=== PATIENT | male | born 1945 | race Caucasian/White ===

== ENCOUNTER 2020-08-02 07:47 | Emergency (ER) | payer MEDICARE ==
[~2020-08-02] VITALS: Ht 185.4 cm; Wt 79.4 kg
[2020-08-02] MEDS ORDERED: KEFLEX500 MG PO (09:58)
== END 2020-08-02 10:09 | disposition home or self-care (01) ==
LOC: ED 07:47
DX: T81.42XA Infection following a procedure, deep incisional surgical site, initial encounter (principal); L03.313 Cellulitis of chest wall; Z87.891 Personal history of nicotine dependence; Z91.040 Latex allergy status; Z91.018 Allergy to other foods
CPT/HCPCS: 99283

== ENCOUNTER 2025-06-16 17:27 | Inpatient (IN) | payer OTHER, MEDICARE ==
[~2025-06-16] VITALS: Ht 185.4 cm; Wt 192.0 kg
[~2025-06-16 17:27] MED LIST: KEFLEX500 MG PO
--- OUTSIDE RECORDS SUMMARY | 2025-06-16 17:34 | XMS ---
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 Jocelyn has no Care Guidelines for this patient. Sean VISIT COUNT (12 MO.) 1 GERARDO AustinEuniceDave Mojica [facility] 1 [facility] TOTAL 3 NOTE: Visits indicate total known visits. ED/C VISIT TRACKING (12 MO.) 06/16/2025 17:28 [facility] TYPE: Emergency COMPLAINT: - SOB 05/26/2025 09:48 [facility] TYPE: Emergency DIAGNOSES: - Pain, unspecified - Wedge compression fracture of T9-T10 vertebra, initial encounter for closed fracture - Back Pain 03/15/2025 11:07 [facility] TYPE: Emergency DIAGNOSES: - Low back pain, unspecified - flank pain INPATIENT VISIT TRACKING (12 MO.) No inpatient visits to display in this time frame [email or web address]
[2025-06-16] MEDS ORDERED: ALBUTEROL/IPRATROPIUM 3 ML NEB INH PRN (17:45)
[2025-06-16 17:55] LABS: BASOPHILS 0.2 % (0.2-1.2); EOSINOPHILS 0 % (0.8-7.0); LYMPHOCYTES 5.8 % (21.8-53.1); MCH 27.8 PG (25.7-32.2); MCHC 32.1 g/dL (32.3-36.5); MCV 86.7 fL (79.0-92.2); MONOCYTES 4.0 % (5.3-12.2); NEUTROPHILS 89.6 % (34.0-67.9); RBC 4.74 M/uL (4.63-6.08)
[2025-06-16] MEDS ORDERED: ALBUTEROL/IPRATROPIUM 3 ML NEB INH ONE ×2 (18:00→19:00)
[2025-06-16] MEDS ORDERED: AZITHROMYCIN 500 MG in DEXTROSE 5% 250 ML IV ONE (18:00)
[2025-06-16] MEDS ORDERED: LIPITOR80 MG PO (18:09)
[2025-06-16] MEDS ORDERED: ISOSORBIDE MONO30 MG PO (18:10)
[2025-06-16] MEDS ORDERED: DOXEPIN HCL10 MG PO (18:10)
[2025-06-16 18:11] LABS: INR 1.16 (0.80-1.30); PROTIME 14.0 Sec (11.2-14.2)
[2025-06-16] MEDS ORDERED: ZITHROMAX250 MG PO (18:11)
[2025-06-16] MEDS ORDERED: ASMANEX HFA13 GM INH (18:12)
[2025-06-16] MEDS ORDERED: NITROGLYCERIN0.4 MG SL (18:12)
[2025-06-16] MEDS ORDERED: SINGULAIR10 MG PO (18:12)
[2025-06-16] MEDS ORDERED: STIOLTO RESPIMAT4 GM INH (18:13)
[2025-06-16] MEDS ORDERED: TAMOXIFEN CITRA20 MG PO (18:13)
[2025-06-16] MEDS ORDERED: PREDNISONE10 MG PO (18:13)
[2025-06-16] MEDS ORDERED: NEURONTIN300 MG PO (18:14)
[2025-06-16] MEDS ORDERED: MUCUS RELIEF E600 MG PO (18:14)
[2025-06-16] MEDS ORDERED: VENTOLIN HFA18 GM INH (18:15)
[2025-06-16] MEDS ORDERED: VITAMIN D325 MCG PO (18:15)
[2025-06-16] MEDS ORDERED: ZYRTEC10 MG PO (18:15)
[2025-06-16] MEDS ORDERED: SODIUM CHLORIDE 0.9% 1,000 ML IV PRN (18:15)
[2025-06-16] MEDS ORDERED: ASPIRIN81 MG PO (18:16)
[2025-06-16] MEDS ORDERED: TOPROL XL25 MG PO (18:16)
[2025-06-16] MEDS ORDERED: VITAMIN B121000 MCG PO (18:16)
[2025-06-16] MEDS ORDERED: BENZONATATE100 MG PO (18:16)
[2025-06-16 18:19] LABS: LACTIC ACID, BLOOD 2.0 mmol/L (0.4-2.0)
[2025-06-16 18:29] LABS: ALT (SGPT) 66.0 U/L (14-59); AST (SGOT) 33.0 U/L (15-37); GLOMERULAR FILTRATION RATE,EST 66.0 mL/min (>60); PROTEIN, TOTAL 7.1 g/dL (6.4-8.2); UREA NITROGEN 20.0 mg/dL (7-18)
[2025-06-16] MEDS ORDERED: SODIUM CHLORIDE 0.9% 1,000 ML IV SCH (19:00)
[2025-06-16 19:04] LABS: INFLUENZA B NAA NEGATIVE (NEGATIVE); RESPIRATORY SYNCYTIAL VIR NAA NEGATIVE (NEGATIVE)
[2025-06-16 20:30] VITALS: BP 156/80
[2025-06-16 20:31] VITALS: BP 156/80
--- NOTE | 2025-06-16 20:33 | NUR ---
PT ADMITTED TO ROOM 110, O2 IN PLACE AT 4LNC, PT RIVAS WITH MINIMAL MOVEMENT. PT ALERT AND ORIENTED X4. HISTORY AND SCREENINGS COMPLETED. PT TO ONLY HAVE MANUAL BP'S TAKEN R/T FRAGILITY OF SKIN. PT DAUGHTER AT BEDSIDE. PT ORIENTED TO ROOM AND CALL ALDRIDGE, BED IN LOW POSITION AND LOCKED. SIDERAILS UP X2. PT INSTRUCTED HACK DRIVER ALDRIDGE, TV REMOTE, URINAL USE. PROVIDED LIQUIDS AND CHEESE STICKS. PT VERBALIZED UNDERSTANDING OF ALL INSTRUCTIONS. PT ORIENTED TO ROOM
[2025-06-16] MEDS ORDERED: ALBUTEROL SULFATE 0.083% 3 ML VIAL INH PRN (20:45)
--- NOTE | 2025-06-16 21:45 | NUR ---
call light answered, pt up to void via urinal, sob after voiding and back in bed, spo2 maintains 90%-94% on 3.5lnc. hr flucuating beteen 98-106. bed alarm on for safety and call light in reach, no additional needs or concerns verbalized, call light in reach.
--- NOTE | 2025-06-16 22:14 | NUR ---
VITALS, ASSESSMENT, EVENING MEDS. PT REPORTS PAIN OF BACK, REQUESTS TYLENOL 3 WHICH HE USUALLY TAKES 4 TIMES A DAY AT HOME. ALSO REQEUSTS COUGH MEDICATION DISCUSSED WITH MD, SEE NEW ORDERS. CALL LIGHT IN REACH
[2025-06-16] MEDS ORDERED: ACETAMINOPHEN/CODEINE #3 1 EA TAB PO PRN (22:30)
[2025-06-16] MEDS ORDERED: BENZONATATE 100 MG CAP PO PRN (22:30)
--- NOTE | 2025-06-16 22:39 | NUR ---
GIVEN PRN TYLENOL 3 AND TESSALON PERLE. NO OTHER NEEDS PRESENTLY,C ALL LIGHT IN REACH
[2025-06-17] VITALS (9 sets, daily range): BP systolic 122–144; BP diastolic 76–86
[2025-06-17] MEDS ORDERED: ALBUTEROL/IPRATROPIUM 3 ML NEB INH SCH
--- NOTE | 2025-06-17 01:45 | NUR ---
ASSISTED PT TO STAND AT BEDSIDE AND USE URINAL. PT STEADY ON FEET, THOUGH DESATTED TO 87% AND REPORTS SHORTNESS OF BREATH. PT BACK IN BED WITH BED ALARM ACTIVE. REFRESHED WATER. NO OTHER NEEDS, ERICA LIGHT INREACH
--- NOTE | 2025-06-17 05:10 | NUR ---
VITALS, AM ASSESSMENT, AM MEDS. PROVIDED COFFEE FOR PT. NO OTHER REQUESTS, CALL LIGHT IN REACH
--- NOTE | 2025-06-17 07:24 | NUR ---
pt's home albuterol inhaler placed in pt room lock box, per protocol. pt denies use. family in room visiting with pt.
--- NOTE | 2025-06-17 07:27 | NUR ---
MORNING REPORT RECIEVED FROM ABDIRAHMAN TRACY. PT SITTING UP IN BED, PT HAD NO ACUTE EVENTS OVER NIGHT AND PT DAUGHTER IS CURRENTLY IN ROOM. PT COMPLAINED OF NAUSEA AND MD MURRAY WAS CONTACTED ABOUT A ORDER FOR ZOFRAN. PT HAS NO OTHER CONCERNS AND HAS CALL LIGHT IN REACH.
[2025-06-17 08:08] LABS: BASOPHILS 0.1 % (0.2-1.2); EOSINOPHILS 0.1 % (0.8-7.0); LYMPHOCYTES 3.2 % (21.8-53.1); MCH 28.2 PG (25.7-32.2); MCHC 33.3 g/dL (32.3-36.5); MCV 84.7 fL (79.0-92.2); MONOCYTES 0.8 % (5.3-12.2); NEUTROPHILS 95.4 % (34.0-67.9); RBC 4.71 M/uL (4.63-6.08)
[2025-06-17 08:23] LABS: GLOMERULAR FILTRATION RATE,EST 87.0 mL/min (>60); UREA NITROGEN 19.0 mg/dL (7-18)
--- NOTE | 2025-06-17 09:12 | NUR ---
ALERT AND ORIENTED IN BED. LIVES ALONE IN MOBILE HOME BUT HAS A RAMP TO GET INSIDE. STATES HE HAS A TOILET RISER, WALKER, WHEELCHAIR, SHOWER CHAIR AND OXYGEN (THROUGH [facility]). HE DRIVES. HE DENIES ANY FINANCIAL CONCERNS. HE IS ABLE TO AFFORD UTLITIES, FOOD AND MEDICATIONS. PATIENT STATES HIS DAUGHTER IS ATTEMPTING TO GET HIM FURTHER ASSISTANCE AT HOME [facility]OUGH [facility]. HIS PLAN IS TO DC TO HOME IF POSSIBLE, WHEN MEDICALLY READY.
--- NOTE | 2025-06-17 09:15 | NUR ---
PATIENT IS LAYING IN BED. PATIENTS VITAL SIGNS AND I&OS WERE DONE. PATIENTS CALL LIGHT IS WITHIN REACH AND NO FURTHER NEEDS AT THIS TIME.
--- NOTE | 2025-06-17 10:13 | NUR ---
PT LAYING IN BED WITH HOB ELEVATED, PT HAS 1.5L O2 NS IN PLACE AND TOLERATING WELL, PT HAS PAIN WHEN COUGHING AND GIVEN PRN TYLENOL, PT ALSO GIVEN TESSLON PEARLS (SEE EMAR) CALL LIGHT IN REACH AND PT DENIES ANY OTHER NEEDS.
[2025-06-17] MEDS ORDERED: HYDROCODON-ACE1 EAC8 PO (10:21)
--- NOTE | 2025-06-17 10:50 | NUR ---
VISITED DURING SPIRITUAL CARE ROUNDS. PT IN OVERALL GOOD SPIRITS, NO IMMEDIATE NEEDS. DIRECTOR DATA MANAGEMENT PROVIDED SUPPORTIVE PRESENCE, THEOLOGICAL CONVERSATION, PRAYER. PT EXPRESSED GRATITUDE, ARNAUD SOURCE OF STRENGTH, STRONG CONNECTION WITH ARNAUD FAMILY.
[2025-06-17] MEDS ORDERED: ASPIRIN 81 MG CHEW PO SCH (11:36)
[2025-06-17] MEDS ORDERED: METOPROLOL SUCCINATE 25 MG TABCR PO SCH (11:37)
[2025-06-17] MEDS ORDERED: MONTELUKAST SODIUM 10 MG TAB PO SCH (11:37)
[2025-06-17] MEDS ORDERED: ISOSORBIDE MONONITRATE 30 MG TABCR PO SCH (11:37)
[2025-06-17] MEDS ORDERED: ACETAMINOPHEN 325 MG TAB PO PRN (11:45)
[2025-06-17] MEDS ORDERED: FOSAMAX70 MG PO (11:53)
[2025-06-17] MEDS ORDERED: CALCIUM CITRAT1 EA11 PO (11:54)
[2025-06-17] MEDS ORDERED: PHARMACY RENAL DOSE ADJUSTMENT 1 DOSE MISC PO SCH (12:00)
[2025-06-17] MEDS ORDERED: DOXYCYCLINE HYCLATE 100 MG CAP PO SCH (12:00)
--- NOTE | 2025-06-17 12:58 | NUR ---
PATIENT IS SITTING IN THE CHAIR EATING LUNCH. PATIENTS LINENS WERE CHANGED PATIENTS CALL LIGHT IS WITHIN REACH AND NO FURTHER NEEDS AT THIS TIME.
--- NOTE | 2025-06-17 13:40 | NUR ---
PT SITTIGN UP IN CHAIR AT THIS TIME, PT HAS FAMILY IN THE ROOM AT THIS TIME AND HAS NO CONCERNS PT HAS CALL LIGHT IN REACH AT THIS TIME.
--- NOTE | 2025-06-17 13:57 | NUR ---
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
--- NOTE | 2025-06-17 14:17 | NUR ---
Admin two tabs tylenol/codeine #3 tabs for reports of 7/10 generalized pain.
[2025-06-17] MEDS ORDERED: IPRAT-ALBUT 0.5-3 ML INH (14:41)
[2025-06-17] MEDS ORDERED: PATADAY5 ML OU (15:07)
--- NOTE | 2025-06-17 15:07 | NUR ---
PT SITTING UP IN CHAIR, PT DENIES NEEDS AND IS PLAYING CARDS WITH GRANDSON AT THIS TIME. PT CALL LIGHT IN REACH CURRENTLY IF NEEDED.
[2025-06-17] MEDS ORDERED: REFRESH CELLUV1 EACH OU (15:08)
[2025-06-17] MEDS ORDERED: NARCAN4 MG NAS (15:09)
--- NOTE | 2025-06-17 15:10 | NUR ---
PATIENT SITTING IN CHAIR. PATIENTS GRANDSON IS AT THE BEDSIDE. PATIENTS CALL LIGHT IS WITHIN REACH AND NO FURTHER NEEDS AT THIS TIME.
[2025-06-17] MEDS ORDERED: LIDODERM1 EACH TOP (15:11)
--- NOTE | 2025-06-17 15:12 | NUR ---
medications reconciled using [facility] and patient interview
--- NOTE | 2025-06-17 15:17 | EKG ---
[facility] [address] [facility] [place] [address] Signed Sinus tachycardia with occasional premature ventricular complexes Left axis deviation Abnormal ECG No previous ECGs available Confirmed by Mathew Mohan MD ([id number]) on 06/17/2025 3:17:15 PM Electronically Signed By: MATHEW MOHAN MD 06/17/25 1517 PATIENT NAME: ZAYRA MUÑOZ Electrocardiogram DATE OF : 45 PHYSICIAN: MATHEW MOHAN MD REPORT #: [id number] REPORT IS CONFIDENTIAL AND NOT TO BE RELEASED WITHOUT AUTHORIZATION
[2025-06-17] MEDS ORDERED: HYDROCODONE/APAP 10/325 1 TAB PO PRN (15:45)
--- NOTE | 2025-06-17 16:14 | NUR ---
PT LAYING IN BED, PT HAS FAMILY IN ROOM AT THIS TIME PT HAS NO CONCERNS AND HAS CALL LIGHT IN REACH AT THIS TIME, PT DENIES SOB AND PAIN, AND HAS 2L NC IN PLACE.
--- NOTE | 2025-06-17 17:42 | NUR ---
PATIENT IS LAYING IN BED. PATIENTS VITAL SIGNS AND I&OS WERE DONE. PATIENTS FAMILY IS AT BEDSIDE. CALL LIGHT IS WITHIN REACH AND NO FUTHER NEEDS AT THIS TIME.
--- NOTE | 2025-06-17 17:52 | NUR ---
PT SITTING UP IN BED WITH SON IN ROOM AND GRANDSON, PT HAS NO CURRENT NEEDS AT THIS TIME AND HAS CALL LIGHT IN REACH IF NEEDED.
--- NOTE | 2025-06-17 19:10 | NUR ---
REPORT RECEIVED FROM KATELYNN GARY. BOARD UPDATED. pt RESTING IN THE BED. pt DENIES ANY OTHER NEEDS AT THIS TIME. CALL LIGHT WITHIN REACH.
[2025-06-17] MEDS ORDERED: GABAPENTIN 300 MG CAP PO SCH (21:00)
[2025-06-17] MEDS ORDERED: DOXEPIN HCL 10 MG CAP PO SCH (21:00)
--- NOTE | 2025-06-17 21:30 | NUR ---
ASSESSMENT AND VITAL SIGNS DONE. pt LUNG SOUNDS ARE CLEAR. SCHEDULED AND PRN MEDS ADMINISTERED. IV'S ASSESSED, WNL. IV IN LAC DC'D PER pt REQUEST. pt DENIES ANY OTHER NEEDS AT THIS TIME. CALL LIGHT WITH IN REACH.
--- NOTE | 2025-06-17 23:04 | NUR ---
CALL LIGHT ANSWERED, PATIENT UP TO RESTROOM TO VOID, USE OF FWW AND MINIMAL SBA. PATIENT BACK TO BED WITHOUT DIFFICULTY, SAT ON SIDE OF BED TO CATCH BREATH, BEFORE LAYING DOWN. NC IN PLACE 2L. BED ALARM ON, CALL LIGHT IN REACH
[2025-06-18] VITALS (7 sets, daily range): BP systolic 102–144; BP diastolic 66–86
--- NOTE | 2025-06-18 00:09 | NUR ---
IN RM TO CHECK ON pt. pt REQUSTED A REFILL ON ICE WATER AND CRANBERRY JUICE. WATER REFRESHED. CRANBERRY JUICE GIVEN. URINAL EMPTIED. pt DENIES ANY OTHER NEEDS AT THIS TIME. CALL LIGHT WITHIN REACH.
--- NOTE | 2025-06-18 01:47 | NUR ---
rounded on pt, pt resting in bed with eyes closed. rr even and unlabored, 2lnc in place. bed alarm on and call light in reach. pt appears relaxed and comfortable at this time. primary rn updated.
--- NOTE | 2025-06-18 04:00 | NUR ---
pt RESTING IN THE BED WITH EYES CLOSED. RR EVEN AND UNLABORED. CALL LIGHT WITHIN REACH.
--- NOTE | 2025-06-18 05:02 | NUR ---
pt CALLED AND ASKED TO USE THE BR. THIS RN WENT IN THE TO ASSIST THE pt. pt SBA TO THE BR. pt WAS SOB WHEN HE GOT BACK TO BED. THIS RN ASKED pt IF HE WOULD LIKE A BREATHING TREATMENT. pt AGREED. RT SHAY CALLED TO AND BREATHING TREATMENT STARTED. VITAL SIGNS DONE. ASSESSMENT DONE. NO OTHER NEEDS AT THIS TIME.
[2025-06-18 06:13] LABS: GLOMERULAR FILTRATION RATE,EST 87.0 mL/min (>60); UREA NITROGEN 26.0 mg/dL (7-18)
[2025-06-18 06:14] LABS: BASOPHILS 0.1 % (0.2-1.2); EOSINOPHILS 0 % (0.8-7.0); LYMPHOCYTES 2.8 % (21.8-53.1); MCH 27.9 PG (25.7-32.2); MCHC 32.9 g/dL (32.3-36.5); MCV 84.8 fL (79.0-92.2); MONOCYTES 2.3 % (5.3-12.2); NEUTROPHILS 94.2 % (34.0-67.9); RBC 4.27 M/uL (4.63-6.08)
--- NOTE | 2025-06-18 07:22 | NUR ---
REPORT RECEIVED FROM CHARTER BUS DRIVER RN ADELITA. PATIENT IS LYING IN BED WITH HOB ELEVATED AND TALKING ON THE PHONE. NC IN PLACE. CALL LIGHT AND PERSONAL BELONGINGS ARE WITHIN REACH.
--- NOTE | 2025-06-18 08:45 | NUR ---
PATIENT IS LYING IN BED WITH HOB ELEVATED. PATIENT WITH NC IN PLACE AND IS EATING BREAKFAST. PATIENT STATED NO NEEDS AT THIS TIME. CALL LIGHT AND PERSONAL BELONGINGS ARE WITHIN REACH.
[2025-06-18] MEDS ORDERED: ENOXAPARIN SODIUM 40 MG/0.4 ML SYR SUB-Q SCH (09:00)
--- NOTE | 2025-06-18 09:35 | NUR ---
PATIENT JUST RETURNED TO BED AFTER USING THE BATHROOM. PATIENT REMAINS ON 2 L NC WITH EXPIRATORY WHEEZE HEARD. PATIENT REPORTS 6/10 PAIN IN THE CHEST AND RIGHT SIDE OF ABDOMEN WITH BREATHING. PATIENT IS NOT REQUESTING ANYTHING FOR PAIN AT THIS TIME. RESPIRATORY THERAPY NOTIFIED OF PATIENT NEEDING A BREATHING TREATMENT. FULL ASSESSMENT COMPLETE AND DOCUMENTED IN THE CHART. VITAL SIGNS AND INTAKE AND OUTPUT VALUES TAKEN AND DOCUMENTED IN THE CHART. PATIENT STATED NO FURTHER NEEDS AT THIS TIME. CALL LIGHT AND PERSONAL BELONGINGS ARE WITHIN REACH.
[2025-06-18] MEDS ORDERED: ARFORMOTEROL TARTRATE 15 MCG/2 ML VIAL INH SCH (09:38)
[2025-06-18] MEDS ORDERED: BUDESONIDE 0.5 MG/2 ML VIAL INH SCH (09:39)
[2025-06-18] MEDS ORDERED: BUDESONIDE 0.5 MG/2 ML VIAL ONE (09:44)
--- NOTE | 2025-06-18 09:50 | NUR ---
INTO SEE PATIENT. PATIENT STATES HE HAS HAD A HARD MORNING. PATIENT STILL WOULD LIKE TO GO HOME AT TIME OF DISCHARGE. AWAITING THERAPY RECCOMENDATIONS.
--- NOTE | 2025-06-18 09:52 | NUR ---
PT NOT AVAILABLE FOR VISIT. PROVIDED PRAYER.
--- NOTE | 2025-06-18 11:02 | NUR ---
PT SITTING UP IN BED WORKING WITH PHYSICAL THERAPY. CALL LIGHT IN REACH.
--- NOTE | 2025-06-18 12:08 | NUR ---
PATIENT IS LYING IN BED WITH HOB ELEVATED. PATIENT WITH EYES OPEN AND RESPIRATIONS ARE EVEN AND UNLABORED. PATIENT WITH NC IN PLACE. CONNIE BENNETT IS IN THE ROOM AT THIS TIME. CALL LIGHT AND PERSONAL BELONGINGS ARE WITHIN REACH.
--- NOTE | 2025-06-18 13:46 | NUR ---
PT IN BED, HOB ELEVATED. PT WITH EYES OPEN, RR ARE EVEN AND UNLABORED. NC IN PLACE, LUNCH TRAY REMOVED. PT RATED 4/10 AFTER RECIEVING PsomasFMGCO AT 1011. PT STATED NO FURTHER NEEDS AT THIS TIME, CALL LIGHT AND PERSONAL BELONGINGS WITHIN REACH.
--- NOTE | 2025-06-18 13:48 | NUR ---
DISCHARGE REVIEW: CONTINUES WITH NEED FOR IV STEROIDS, TITRATION OF OXYGEN, RT/PT/OT EVAL AND TREATMENT WITH POTENTIAL NEED FOR HOME HEALTH AT DC. PLAN 1-2 MORE DAYS OF INPT CARE ADD: 06/19-06/20/25
--- NOTE | 2025-06-18 13:58 | NUR ---
PATIENT IN BED AT THIS TIME. HEAVY MEDIA OPERATOR CHARTED VITALS AND I&O'S. PATIENT WANTS BEDBATH AT 1500. CALL LIGHT WITHIN REACH, NO FURTHER NEEDS.
--- NOTE | 2025-06-18 14:18 | NUR ---
PT IN BED WITH HOB ELEVATED, TALKING WITH DR. JACOB. CALL LIGHT AND PERSONAL BELONGINGS WITHIN REACH.
[2025-06-18] MEDS ORDERED: guaiFENesin 600 MG TABCR PO PRN (14:30)
[2025-06-18] MEDS ORDERED: GABAPENTIN 300 MG CAP PO ONE (14:30)
--- NOTE | 2025-06-18 14:52 | NUR ---
PATIENT IS WORKING WITH PHYSICAL THERAPY AND RESPIRATORY THERAPY AT THIS TIME.
--- NOTE | 2025-06-18 15:29 | NUR ---
PT SITTING IN BED WITH HOB ELEVATED. PT APPEARS TACHYPNEIC. CRACKLES AUSCULTATED THROUGHOUT LUNGS. PT ON 2LNC CURRENTLY. 4LNC TO BE USED WITH ACTIVITY. PT HAS NO C/O SOB. PT REQUESTING MUCINEX. IV SITE REMAINS CLEAN, DRY, AND INTACT. FLUSHED WITH 10 ML SALINE. PT REPORTS PAIN IS STILL AT A 4/10 ON RIGHT SIDE AND CHEST. PT NOT REQUESTING ANYTHING FOR PAIN AT THIS TIME. PT STATED NO FURTHER NEEDS. CALL LIGHT AND PERSONAL BELONGINGS WITHIN REACH.
--- NOTE | 2025-06-18 16:00 | NUR ---
PT SITTING IN BED WITH HOB ELEVATED. RR EVEN AND UNLABORED. PROVIDED MUCINEX TO PT. CALL LIGHT AND PERSONAL BELONGINGS WITHIN REACH.
--- NOTE | 2025-06-18 17:02 | NUR ---
PT SITTING IN BED WITH HOB ELEVATED, VISITING WITH FAMILY. NC SECURELY ON FACE. PT REPORTS THAT PAIN IS STILL AT A 4/10; PT NOT REQUESTING ANYTHING FOR PAIN AT THIS TIME. CALL LIGHT AND PERSONAL BELONGINGS WITHIN REACH, PT DENIES ANY NEEDS AT THIS TIME.
--- NOTE | 2025-06-18 18:04 | NUR ---
PT IN BED WITH HEAD ELEVATED, VISITING WITH FAMILY. REMOVED DINNER TRAY PER PT REQUEST. CALL LIGHT AND PERSONAL BELONGINGS WITHIN REACH.
--- NOTE | 2025-06-18 18:57 | NUR ---
PATIENT IN BED AT THIS TIME. LAMP TESTER AND INSPECTOR CHARTED VITALS AND I&O'S. CALL LIGHT WITHIN REACH, NO FURTHER NEEDS AT THIS TIME.
--- NOTE | 2025-06-18 19:10 | NUR ---
REPORT RECEIVED FROM DIRK GARY. pt RESTING IN THE BED. BOARD UPDATED. pt DENIES ANY NEEDS AT THIS TIME. CALL LIGHT WITHIN REACH.
[2025-06-18] MEDS ORDERED: GABAPENTIN 300 MG CAP PO SCH (21:00)
--- NOTE | 2025-06-18 22:15 | NUR ---
ASSESSMENT DONE. IV ASSESSED, WNL. SCHEDULED MEDS ADMINISTERED. LUNG SOUNDS CLEAR. 2LNC. pt DENIES ANY OTHER NEEDS AT THIS TIME. CALL LIGHT WITHIN REACH.
[2025-06-19] VITALS (9 sets, daily range): BP systolic 113–159; BP diastolic 61–87
--- NOTE | 2025-06-19 00:04 | NUR ---
pt RESTING IN THE BED. RT IN GIVING pt BREATHING TREATMENT. pt DENIES ANY OTHER NEEDS AT THIS TIME. CALL LIGHT WITHIN REACH.
--- NOTE | 2025-06-19 01:44 | NUR ---
pt CALLED TO USE THE BR. SBA TO THE BR. O2 INCREASED TO 4LNC DURING ACTIVITY. pt BACK TO THE BED. O2 DECREASED BACK TO 2LNC. pt DENIES ANY OTHER NEEDS AT THIS TIME. CALL LIGHT WITHIN REACH.
--- NOTE | 2025-06-19 03:09 | NUR ---
pt RESTING IN THE BED WITH EYES CLOSED. RR EVEN AND UNLABORED. CALL LIGHT WITHIN REACH. 2LNC ON.
--- NOTE | 2025-06-19 05:43 | NUR ---
PATIENT IS LAYING IN BED. VITAL SIGNS AND I&OS WERE DONE. WATER WAS REFILLED. PATIENT DECLINED TO US THE BATHROOM. PATIENTS CALL LIGHT IS WITHIN REACH AND NO FURTHER NEEDS AT THIS TIME.
[2025-06-19 05:56] LABS: BASOPHILS 0.1 % (0.2-1.2); EOSINOPHILS 0 % (0.8-7.0); LYMPHOCYTES 2.2 % (21.8-53.1); MCH 28.1 PG (25.7-32.2); MCHC 33.0 g/dL (32.3-36.5); MCV 85.1 fL (79.0-92.2); MONOCYTES 2.4 % (5.3-12.2); NEUTROPHILS 94.8 % (34.0-67.9); RBC 4.09 M/uL (4.63-6.08)
[2025-06-19 06:18] LABS: GLOMERULAR FILTRATION RATE,EST 80.0 mL/min (>60); UREA NITROGEN 27.0 mg/dL (7-18)
--- NOTE | 2025-06-19 07:12 | NUR ---
REPORT RECEIVED FROM TACK CLEANER RN ADELITA. PATIENT IS SITTING UPRIGHT IN THE CHAIR WITH EYES CLOSED AND RESPIRATIONS ARE EVEN AND UNLABORED. NC IN PLACE. CALL LIGHT AND PERSONAL BELONGINGS ARE WITHIN REACH.
[2025-06-19] MEDS ORDERED: ALBUTEROL/IPRATROPIUM 3 ML NEB INH SCH (08:00)
--- NOTE | 2025-06-19 08:31 | NUR ---
PATIENT IN CHAIR AT THIS TIME. AUTO GARAGE MECHANIC CHARTED HOURLY ROUNDS. CALL LIGHT WITHIN REACH, NO FURTHER NEEDS.
--- NOTE | 2025-06-19 08:37 | NUR ---
PATIENT IS SITTING IN THE CHAIR WITH BILATERAL LOWER EXTREMITIES ELEVATED. PATIENT IS EATING BREAKFAST. NC IN PLACE. PATIENT REPORTS WANTING TO GET BACK TO BED AFTERWARDS. PATIENT EDUCATED ON PRESSING THE CALL LIGHT WHEN HE IS READY. PATIENT EXPRESSED UNDERSTANDING AND NO FURTHER NEEDS. CALL LIGHT AND PERSONAL BELONGINGS ARE WITHIN REACH.
--- NOTE | 2025-06-19 09:06 | NUR ---
PATIENT IS SITTING IN THE CHAIR WITH BILATERAL LOWER EXTREMITIES ELEVATED. PATIENT WITH EYES OPEN AND RESPIRATIONS ARE EVEN AND UNLABORED. NC IN PLACE. CALL LIGHT AND PERSONAL BELONGINGS ARE WITHIN REACH.
--- NOTE | 2025-06-19 09:34 | NUR ---
PATIENT IN BED AT THIS TIME. FINISHER BRUSH CHARTED VITALS AND I&O'S. CALL LIGHT WITHIN REACH, NO FURTHER NEEDS.
--- NOTE | 2025-06-19 10:09 | NUR ---
INTO SEE PATIENT. PATIENT STILL WOULD LIKE TO GO HOME WITH HOME HEALTH AT TIME OF DISCHARGE. HE IS GOING TO GO STAY WITH HIS DAUGHTER A COUPLE DAYS TO GET STRONGER. IMM LETTER COMPLETED. NO FUTHER CM NEEDS.
--- NOTE | 2025-06-19 10:40 | NUR ---
PT UP IN CHAIR WITH LOWER EXTREMITIES ELEVATED. PT WITH EYES OPEN; RR ARE EVEN AND UNLABORED. FULL ASSESSMENT COMPLETE AND DOCUMENTED IN CHART. LAST BM 06/17/2025. PT IS ALERT AND ORIENTED. PT REPORTS NUMBESS AND TINGLING TO BILATERAL LOWER EXTREMITIES AT BASELINE. PT REMAINS ON 2LNC, LUNG SOUNDS ARE COARSE THROUGHOUT. PT WITH NO C/O SOB. SCATTERED BRUISING NOTED, PT REPORTED PAIN 5/10 IN THE CHEST AND RIGHT SIDE OF ABDOMEN. PT IS NOT REQUESTING ANYTHING FOR PAIN AT THIS TIME. PT REPORTS NEEDING TO USE THE BATHROOM AND WANTING TO GET BACK TO BED. TASK DELEGATED TO CONNIE DENNEY. CALL LIGHT AND PERSONAL BELONGINGS ARE WITHIN REACH.
--- NOTE | 2025-06-19 11:06 | NUR ---
PT IS LAYING IN BED WITH HEAD RECLINED, WATCHING TV. CALL LIGHT AND PERSONAL BELONGINGS WITHIN REACH. RR EVEN AND UNLABORED.
--- NOTE | 2025-06-19 11:18 | NUR ---
VISITED DURING SPIRITUAL CARE ROUNDS. PT APPEARED TO BE SLEEPING. DID NOT DISTURB. PROVIDED PRAYER.
--- NOTE | 2025-06-19 12:25 | NUR ---
PT SITTING UP IN BED WITH HEAD ELEVATED, VISITING WITH GRANDSON, ABOUT TO EAT LUNCH. RR ARE EVEN AND UNLABORED, CALL LIGHT IS IN HAND AND PERSONAL BELONGINGS ARE WITHIN REACH. PT STATES NO NEEDS AT THIS TIME.
--- NOTE | 2025-06-19 13:00 | NUR ---
PT SITTING UP IN BED WITH HOB ELEVATED, PLAYING CARDS WITH GRANDSON. RR EVEN AND UNLABORED. CALL LIGHT AND PERSONAL BELONGINGS WITHIN REACH, DENIES ANY NEEDS AT THIS TIME.
--- NOTE | 2025-06-19 14:16 | NUR ---
PATIENT IS LYING IN BED WITH EYES OPEN AND RESPIRATIONS ARE EVEN AND UNLABORED. NC IN PLACE. PATIENT GRANDSON IS SITTING ON THE COUCH. CALL LIGHT AND PERSONAL BELONGINGS ARE WITHIN REACH.
--- NOTE | 2025-06-19 14:34 | NUR ---
PATIENT IS LYING IN BED WITH HOB ELEVATED. PATIENT WITH EYES OPEN AND RESPIRATIONS ARE EVEN AND UNLABORED. 1400 MEDICATION ADMINISTERED PER THE EMAR. PATIENT RATED PAIN A 6/10 IN THE RIBS. PRN NORCO ADMINISTERED PER THE EMAR. IV SITE FLUSHED WITH 10 ML NORMAL SALINE AND IS SALINE LOCKED. IV DRESSING IS CLEAN, DRY, AND INTACT. PATIENT IS ON 2 L NC. LUNG SOUNDS ARE COARSE THROUGHOUT. PATIENT REPORTS "I CAN TELL THERE IS A DIFFERENCE" WHEN THIS RN ASKED PATIENT ABOUT SOB. PATIENT IS ALERT AND ORIENTED TIMES FOUR. NUMBNESS AND TINGLING STILL REPORTED IN THE BLE. TWO VISITORS ARE IN THE ROOM. PATIENT STATED NO FURTHER NEEDS AT THIS TIME. CALL LIGHT AND PERSONAL BELONGINGS ARE WITHIN REACH.
--- NOTE | 2025-06-19 15:02 | NUR ---
PT IS UP AND AMBULATING THE HALLS WITH PHYSICAL THERAPY AND GRANDSON. CONNIE BENNETT, IS FOLLOWING BEHIND WITH A W/C.
--- NOTE | 2025-06-19 17:05 | NUR ---
PATIENT PROVIDED LIST OF BREATHING TREATMENTS HE IS RECEIVING IN THE HOSPITAL. PATIENT UPDATED ON THIS RN SPEAKING WITH REGARDING AN ANTACID. PATIENT EXPRESSED UNDERSTANDING. PATIENT RATED PAIN 5/10 IN THE RIBS. PATIENT IS NOT REQUESTING ANYTHING FOR PAIN AT THIS TIME. PATIENT STATED NO FURTHER NEEDS. CALL LIGHT AND PERSONAL BELONGINGS ARE WITHIN REACH.
--- NOTE | 2025-06-19 18:02 | NUR ---
NOTIFIED OF PATIENT REQUESTING LIDOCAINE CREAM AND SOMETHING FOR STOMACH ACID. MD STATED HE WOULD PUT AN ORDER IN. MD WITH NO FURTHER ORDERS. CALL ENDED.
--- NOTE | 2025-06-19 18:10 | NUR ---
PATIENT IS SITTING IN THE CHAIR WITH BILATERAL LOWER EXTREMITIES ELEVATED. NC IN PLACE. PATIENT GIVEN UPDATE REGARDING MEDICATIONS REQUESTED. PATIENT EXPRESSED UNDERSTANDING. TWO VISITORS ARE IN THE ROOM. PATIENT STATED NO FURTHER NEEDS. CALL LIGHT AND PERSONAL BELONGINGS ARE WITHIN REACH.
[2025-06-19] MEDS ORDERED: CALCIUM CARBONATE 500 MG CHEW PO PRN (18:15)
[2025-06-19] MEDS ORDERED: LIDOCAINE HCL 4% 5 GM TUBE TOP SCH (18:15)
--- NOTE | 2025-06-19 19:10 | NUR ---
REPORT RECEIVED FROM DIRK GARY. BOARD UPDATED. WATER REFRESHED. pt RESTING IN THE BED. pt DENIES ANY OTHER NEEDS AT THIS TIME. CALL LIGHT WITHIN REACH.
--- NOTE | 2025-06-19 21:10 | NUR ---
ASSESSMENT AND VITAL SIGNS DONE. pt UP TO THE BR. O2 INCREASED TO 4L PER ORDER. pt BACK TO BED NO SOB. pt TITRATED BACK TO 2L. pt C/O 5/10 PAIN. PRN PAIN MEDS ADMINISTERED. pt DENIES ANY OTHER NEEDS AT THIS TIME. CALL LIGHT WITHIN REACH. SCHEDULED MEDS ADMINISTERED. IV ASSESSED, WNL.
--- NOTE | 2025-06-19 23:00 | NUR ---
pt RESTING IN THE BED WITH EYES CLOSED. RR EVEN AND UNLABORED. CALL LIGHT WITHIN REACH.
--- NOTE | 2025-06-20 00:41 | NUR ---
pt CALLED FOR PRN ANTI NAUSEA MEDS. PRN MEDS ADMINISTERED. pt UP TO THE BR, SBA. pt O2 TITRATED UP TO 4L FOR ACTIVITY AND DECRESED TO 2L WHILE BACK IN BED. pt BACK TO BED. pt DENIES ANY OTHER NEEDS AT THIS TIME. CALL LIGHT WITHIN REACH.
--- NOTE | 2025-06-20 02:23 | NUR ---
pt RESTING IN THE BED. pt DENIES ANY OTHER NEEDS AT THIS TIME. CALL LIGHT WITHIN REACH.
--- NOTE | 2025-06-20 03:57 | NUR ---
pt RESTING IN THE BED WITH EYES CLOSED. RR EVEN AND UNLABORED. CALL LIGHT WITHIN REACH.
[2025-06-20 05:03] VITALS: BP 126/84
--- NOTE | 2025-06-20 05:06 | NUR ---
CALL LIGHT ANSWERED. PT UP TO BATHROOM. PT VOIDED AND ASSISTED BACK TO BED. VITALS AND I&O OBTAINED. ICE WATER REFILLED. PT STATES NO FURTHER NEEDS AT THIS TIME. CALL LIGHT WITHIN REACH.
[2025-06-20 05:40] LABS: BASOPHILS 0.1 % (0.2-1.2); EOSINOPHILS 0 % (0.8-7.0); LYMPHOCYTES 2.7 % (21.8-53.1); MCH 27.9 PG (25.7-32.2); MCHC 33.1 g/dL (32.3-36.5); MCV 84.4 fL (79.0-92.2); MONOCYTES 3.7 % (5.3-12.2); NEUTROPHILS 92.2 % (34.0-67.9); RBC 4.37 M/uL (4.63-6.08)
--- NOTE | 2025-06-20 05:53 | NUR ---
ASSESSMENT DONE. pt HAS SOME FINE CRACKLES IN HIS LUNGS. pt DENIES ANY OTHER NEEDS AT THIS TIME. CALL LIGHT WITHIN REACH.
[2025-06-20 05:55] LABS: GLOMERULAR FILTRATION RATE,EST 82.0 mL/min (>60); UREA NITROGEN 31.0 mg/dL (7-18)
[2025-06-20] MEDS ORDERED: BUDESONIDE 0.5 MG/2 ML VIAL INH SCH (08:00)
[2025-06-20 08:50] VITALS: BP 118/68
--- NOTE | 2025-06-20 08:50 | NUR ---
Admin one tab norco 10/325mg po for reports of 5/10 generalized pain.
--- NOTE | 2025-06-20 09:00 | NUR ---
Patient awake sitting up in bed, alert and oriented x3, no acute distress. Patient denies sob at this time, respirations non labored. Patient on 2L oxygen per nc. Patient denies needs at this time, personal supplies and call light within reach.
[2025-06-20 11:00] VITALS: BP 118/68
--- NOTE | 2025-06-20 11:19 | NUR ---
PT SITTING UP IN BED - THREE VISITORS IN ROOM. DRINKING COFFEE. CALL LIGHT WITHIN REACH - MANUAL BP -
--- NOTE | 2025-06-20 13:45 | NUR ---
Patient sitting up in bed watching tv, no acute distress. Patient reports tolerable back/rib pain. Call light within reach.
[2025-06-20] MEDS ORDERED: ALBUTEROL/IPRATROPIUM 3 ML NEB INH SCH (14:00)
--- NOTE | 2025-06-20 15:27 | NUR ---
GOT REPORT FROM DAY SHIFT NURSE.
--- NOTE | 2025-06-20 16:11 | NUR ---
INTO ROOM TO CHECK ON PATIENT. PT DOES WANT A SHOWER TODAY. PATIENT IS ON 2L OF OXYGEN. NEBULIZER WAS NOT GIVEN AT 2PM TODAY CALL TO RT PATIENT WOULD LIKE IT. PATIENT HAS WATER AT BEDSIDE. TV ON. PATIENT DENIES ANY OTHER CARES.BED IN LOW POSITION. CALL LIGHT WITHIN REACH.
[2025-06-20 18:52] VITALS: BP 136/92
--- NOTE | 2025-06-20 19:05 | NUR ---
PT WAS UP TO WASH OFF FACE AND CHANGE HIS UNDERWEAR IN THE BATHROOM. WE PUT HIS O2 UP TO 4L BUT HE STILL GOT SHORT OF BREATH. GOT PT FRESH ICE WATER AND WE DID A PARTIAL BED BATH. CALL LIGHT WITHIN REACH - ALL VISITORS WENT HOME, PT WATCHING TV.
--- NOTE | 2025-06-20 19:08 | NUR ---
DID A PARTIAL BED BATH IN THE BATHROOM. PATIENT PERFORMED ACT BUT DID GET SOB. GOT PT FRESH ICE WATER AND WARM BLANKET. CALL LIGHT WITHIN REACH.
--- NOTE | 2025-06-20 19:34 | NUR ---
PATIENT GIVEN PAIN MEDICATIONS AND LIDOCAINE ON HIS RIGHT RIBS FOR PAIN. PATIENT GOT SHOWER AND FEELING MUCH BETTER. WATER AT BEDSIDE.
--- NOTE | 2025-06-20 20:48 | NUR ---
RT IS IN ROOM WITH PATIENT.
[2025-06-20 21:06] VITALS: BP 149/81
--- NOTE | 2025-06-20 21:10 | NUR ---
PATIENT IS LAYING IN BED. PATIENT WAS PROVIDED WITH A WARM WASHCLOTH. PATIENTS VITAL SIGNS WERE DONE. PATIENT DECLINED TO USE THE RESTROOM.PATIENTS CALL LIGHT IS WITHIN REACH AND NO FURTHER NEEDS AT THIS TIME.
[2025-06-20 21:13] VITALS: BP 149/81
--- NOTE | 2025-06-20 21:49 | NUR ---
PATIENT SLEEPING, REGULAR RESIRATIONS NOTED. 2L OXYGEN NC ON, BED IN LOW POSITION, CALL LIGHT WITHIN REACH, WATER AT BEDSIDE.
--- NOTE | 2025-06-20 22:24 | NUR ---
ZAYRA STATED THAT HE NEEDS A NEW NEBULIZER MACHINE. UPON DISCHARGE, CAN WE PLEASE ORDER HIM A NEW NEBULIZER MACHINE AND RESPIRATORY MEDICATIONS: BROVANA BID, PULMICORT BID, ALBUTEROL Q2 PRN, DUONEB Q6 PRN.
--- NOTE | 2025-06-20 23:05 | NUR ---
PATIENT ASLEEP ON BACK, REGULAR RESPRIATIONS.
--- NOTE | 2025-06-20 23:59 | NUR ---
PATIENT SLEEPING ON BACK. REGULAR RESPRIATIONS NOTED.
--- NOTE | 2025-06-21 01:36 | NUR ---
RECEIVED REPORT FROM SHANNON. PATIENT SLEEPING AT THIS TIME, RESPIRATIONS UNLABORED. PT ALLOWED TO REST, CALL LIGHT WITHIN REACH.
--- NOTE | 2025-06-21 02:12 | NUR ---
PT SLEEPING, DID NOT AWAKEN WHEN THIS RN ENTERED ROOM. RESP EVEN/UNLABORED. PT ALLOWED TO SLEEP. CALL LIGHT WITHIN REACH.
--- NOTE | 2025-06-21 04:13 | NUR ---
PATIENT WAS ASSISTED SBA TO THE BATHROOM. PATIENT WAS PROVIDED WITH A WARM BLANKET. PATIENTS CALL LIGHT IS WITHIN REACH AND NO FURTHER NEEDS AT THIS TIME.
[2025-06-21 05:23] VITALS: BP 112/84
--- NOTE | 2025-06-21 05:24 | NUR ---
PATIENT IS LAYING IN BED. VITAL SIGNS AND I&OS WERE DONE. PATIENTS CALL LIGHT IS WITHIN REACH AND NO FURTHER NEEDS AT THIS TIME.
[2025-06-21 05:26] LABS: BASOPHILS 0.1 % (0.2-1.2); EOSINOPHILS 0 % (0.8-7.0); LYMPHOCYTES 2.6 % (21.8-53.1); MCH 28.1 PG (25.7-32.2); MCHC 32.9 g/dL (32.3-36.5); MCV 85.5 fL (79.0-92.2); MONOCYTES 4.2 % (5.3-12.2); NEUTROPHILS 92.4 % (34.0-67.9); RBC 4.20 M/uL (4.63-6.08)
[2025-06-21 05:37] LABS: GLOMERULAR FILTRATION RATE,EST 89.0 mL/min (>60); UREA NITROGEN 31.0 mg/dL (7-18)
--- NOTE | 2025-06-21 06:53 | NUR ---
PT SITTING UP IN BED THIS MORNING WATCHING TV. EXCITED ABOUT GOING HOME. PT STATES HE HAD A IDANIA REST. DENIES ANY NEEDS AT THIS TIME, CALL LIGHT WITHIN REACH.
--- NOTE | 2025-06-21 08:14 | NUR ---
Patient awake, alert and oriented x3, no acute distress. Patient eating breakfast, tolerating well. Patient is on 2L oxygen per nc, respirations non labored. Patient reports he slept well last night and is eager to discharge home today. Admin one tab norco 10/325mg po for reports of 5/10 right rib pain.
[2025-06-21 08:18] VITALS: BP 139/64
[2025-06-21 08:19] VITALS: BP 139/64
--- NOTE | 2025-06-21 08:28 | NUR ---
PT SITTING IN CHAIR FOLLOWING BREAKFAST. PT WAS COUGHING WITH REPORTED PAIN. INFORMED NURSE. PT REFUSED A LINEN CHANGE - HE SAID HE IS LEAVING TODAY. CLEANED UP ROOM AND EMPTIED TRASH. PT HAS FRESH ICE WATER. CALL LIGHT WITHIN REACH - PT REPORTED NEEDING NOTHING MORE AT THIS TIME.
[2025-06-21 09:53] VITALS: BP 136/78
--- NOTE | 2025-06-21 10:02 | NUR ---
PT WAS SITTING IN CHAIR - GOT UP TO USE THE RESTROOM, URINATED, THEN WENT TO THE BED SO HE COULD RAISE HIS LEGS. PROVIDED A PILLOW UNDER HIS LEGS FOR COMFORT. i HAD ALSO PUT SOME CREAM ON HIS ARMS AND LEGS AND BACK - HIS SKIN IS VERY DRY. PT REPORTED THAT HE LIKED THE CREAM. CALL LIGHT WITHIN REACH ON THE BED. GOT PT WARM PACK FOR HIS FRONT CHEST.
--- NOTE | 2025-06-21 10:06 | NUR ---
GOT PT A HEAT PACK FOR HIS CHEST - FOR COMFORT.
[2025-06-21] MEDS ORDERED: GABAPENTIN300 MG PO (11:38)
[2025-06-21] MEDS ORDERED: PREDNISONE20 MG PO (11:42)
[2025-06-21 12:55] VITALS: BP 140/71
--- NOTE | 2025-06-21 12:59 | NUR ---
PT SITTING UP IN BED, FAMILY IN ROOM - GETTING DC'ED.
== END 2025-06-21 13:15 | disposition home health service (06) | DRG 192 ==
LOC: ED 17:27 → MS 19:00
PROVIDERS: Emergency Medicine; ADMIT Student in an Organized Health Care Education/Training Program; ATTEND Student in an Organized Health Care Education/Training Program
DX: J44.1 Chronic obstructive pulmonary disease with (acute) exacerbation (principal); I25.10 Atherosclerotic heart disease of native coronary artery without angina pectoris; G89.29 Other chronic pain; Z66 Do not resuscitate; Z60.2 Problems related to living alone; J43.9 Emphysema, unspecified; M19.90 Unspecified osteoarthritis, unspecified site; J98.4 Other disorders of lung; E66.9 Obesity, unspecified; Z68.24 Body mass index [BMI] 24.0-24.9, adult; Z79.52 Long term (current) use of systemic steroids; Z79.82 Long term (current) use of aspirin; Z79.899 Other long term (current) drug therapy; Z79.891 Long term (current) use of opiate analgesic; Z87.891 Personal history of nicotine dependence; Z85.3 Personal history of malignant neoplasm of breast; Z91.040 Latex allergy status; Z91.018 Allergy to other foods
CPT/HCPCS: 36415; 71045; 80048; 80053; 82803; 83605; 83735; 83880; 84484; 85025; 85610; 85730; 87040; 87502; 93005; 93010; 94640; 94667; 94668; 94760; 94799; 96365; 96368; 96375; 97116; 97162; 97166; 97530; 97535; 99285-25; A9270; J0456; J0696; J1650; J2405; J2919; J7030; J7060; J7605; U0002

== ENCOUNTER 2025-06-24 13:38 | Emergency (ER) | payer OTHER ==
[~2025-06-24] VITALS: Ht 185.4 cm; Wt 86.0 kg
[~2025-06-24 13:38] MED LIST changes: +ASMANEX HFA13 GM INH; +ASPIRIN81 MG PO; +BENZONATATE100 MG PO; +CALCIUM CITRAT1 EA11 PO; +DOXEPIN HCL10 MG PO; +FOSAMAX70 MG PO; +GABAPENTIN300 MG PO; +HYDROCODON-ACE1 EAC8 PO; +IPRAT-ALBUT 0.5-3 ML INH; +ISOSORBIDE MONO30 MG PO; +LIDODERM1 EACH TOP; +LIPITOR80 MG PO; +MUCUS RELIEF E600 MG PO; +NARCAN4 MG NAS; +NEURONTIN300 MG PO; +NITROGLYCERIN0.4 MG SL; +PATADAY5 ML OU; +PREDNISONE10 MG PO; +PREDNISONE20 MG PO; +REFRESH CELLUV1 EACH OU; +SINGULAIR10 MG PO; +STIOLTO RESPIMAT4 GM INH; +TAMOXIFEN CITRA20 MG PO; +TOPROL XL25 MG PO; +VENTOLIN HFA18 GM INH; +VITAMIN B121000 MCG PO; +VITAMIN D325 MCG PO; +ZITHROMAX250 MG PO; +ZYRTEC10 MG PO
--- OUTSIDE RECORDS SUMMARY | 2025-06-24 13:45 | XMS ---
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 Jocelyn has no Care Guidelines for this patient. Sean VISIT COUNT (12 MO.) 2 [place] [place] [address] TOTAL 4 NOTE: Visits indicate total known visits. ED/C VISIT TRACKING (12 MO.) 06/24/2025 13:38 [facility] [place] TYPE: Emergency COMPLAINT: - BACK PAIN 06/16/2025 17:28 [facility] [place] TYPE: Emergency COMPLAINT: - SOB 05/26/2025 09:48 [facility] TYPE: Emergency DIAGNOSES: - Pain, unspecified - Wedge compression fracture of T9-T10 vertebra, initial encounter for closed fracture - Back Pain 03/15/2025 11:07 [facility] [place] TYPE: Emergency DIAGNOSES: - Low back pain, unspecified - flank pain INPATIENT VISIT TRACKING (12 MO.) 06/16/2025 19:00 [facility] [place] TYPE: Medical Surgical COMPLAINT: - COPD EXACERBATION,RESP FAILURE,HYPOXIC COPD CAP DIAGNOSES: - Acute and chronic respiratory failure with hypoxia - Acute respiratory failure with hypoxia - Allergy to other foods - Allergy to other foods - Atherosclerotic heart disease of [place] coronary artery without angina pectoris - Atherosclerotic heart disease of [place] coronary artery without angina pectoris - Body mass index [BMI] 24.0-24.9, adult - Chronic obstructive pulmonary disease with (acute) exacerbation - Chronic obstructive pulmonary disease with (acute) exacerbation - Do not resuscitate - Do not resuscitate - Emphysema, unspecified - Latex allergy status - Latex allergy status - FDC (current) use of aspirin - FDC (current) use of aspirin - long term (current) use of opiate analgesic - long term (current) use of opiate analgesic - FDC (current) use of systemic steroids - Obesity, unspecified - Other chronic pain - Other chronic pain - Other disorders of lung - Other equipment operator intermodal yard (current) drug therapy - Other equipment operator intermodal yard (current) drug therapy - Personal history of malignant neoplasm of breast - Personal history of malignant neoplasm of breast - Personal history of nicotine dependence - Personal history of nicotine dependence - Problems related to living alone - Shortness of breath - Unspecified osteoarthritis, unspecified site [email or web address]
[2025-06-24] MEDS ORDERED: ONDANSETRON 4 MG TAB ODT SL ONE (14:30)
[2025-06-24] MEDS ORDERED: HYDROmorphone HCL 1 MG/ML SYR IM ONE (14:30)
[2025-06-24] MEDS ORDERED: MENTHOL/CETYLPYRD CL 1 LOZ LOZENGE PO ONE (14:45)
[2025-06-24 14:54] LABS: BASOPHILS 0.1 % (0.2-1.2); EOSINOPHILS 0 % (0.8-7.0); LYMPHOCYTES 3.7 % (21.8-53.1); MCH 28.0 PG (25.7-32.2); MCHC 33.0 g/dL (32.3-36.5); MCV 85.0 fL (79.0-92.2); MONOCYTES 7.1 % (5.3-12.2); NEUTROPHILS 88.0 % (34.0-67.9); RBC 4.92 M/uL (4.63-6.08)
[2025-06-24 15:04] LABS: GLOMERULAR FILTRATION RATE,EST 87.0 mL/min (>60); UREA NITROGEN 28.0 mg/dL (7-18)
[2025-06-24] MEDS ORDERED: PERCOCET 5-3251 EACH PO (16:19)
[2025-06-24] MEDS ORDERED: LIDODERM1 EACH TOP (16:19)
[2025-06-24] MEDS ORDERED: OXYCODONE/APAP 5/325 TAB PO ONE (16:30)
[2025-06-24 16:33] VITALS: BP 158/101
== END 2025-06-24 16:35 | disposition home or self-care (01) ==
LOC: ED 13:38
PROVIDERS: Emergency Medicine
DX: M48.54XA Collapsed vertebra, not elsewhere classified, thoracic region, initial encounter for fracture (principal); J44.89 Other specified chronic obstructive pulmonary disease; I25.2 Old myocardial infarction; Z98.890 Other specified postprocedural states; Z86.73 Personal history of transient ischemic attack (TIA), and cerebral infarction without residual deficits; Z87.891 Personal history of nicotine dependence; Z91.040 Latex allergy status; Z91.018 Allergy to other foods; Z79.51 Long term (current) use of inhaled steroids; Z79.52 Long term (current) use of systemic steroids; Z79.82 Long term (current) use of aspirin; Z79.899 Other long term (current) drug therapy
CPT/HCPCS: 36415; 72128; 72131; 80048; 85025; 86140; 96372; 99284-25; A9270; J1171

== ENCOUNTER 2025-07-02 05:16 | Emergency (ER) | payer OTHER ==
[~2025-07-02] VITALS: Ht 185.4 cm; Wt 89.8 kg
[~2025-07-02 05:16] MED LIST changes: +PERCOCET 5-3251 EACH PO
--- OUTSIDE RECORDS SUMMARY | 2025-07-02 05:23 | XMS ---
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 Jocelyn has no Care Guidelines for this patient. E.DJerad VISIT COUNT (12 MO.) [address] 1 [facility] (Jonatan Cheung) TOTAL 6 NOTE: Visits indicate total known visits. ED/UCC VISIT TRACKING (12 MO.) 07/02/2025 05:16 [facility] [place] TYPE: Emergency COMPLAINT: - CHEST PAIN 06/26/2025 16:48 [facility]atan [facility] ([place]) TYPE: Emergency DIAGNOSES: - Acute embolism and thrombosis of right femoral vein - leg pain - Leg Swelling 06/24/2025 13:38 [facility] [place] TYPE: Emergency COMPLAINT: - BACK PAIN DIAGNOSES: - Allergy to other foods - Collapsed vertebra, not elsewhere classified, thoracic region, initial encounter for fracture - Latex allergy status - termite treater helper (current) use of aspirin - termite treater helper (current) use of inhaled steroids - penitentiary (current) use of systemic steroids - Old myocardial infarction - Other dorsalgia - Other retirement (current) drug therapy - Other specified chronic obstructive pulmonary disease - Other specified postprocedural states - Personal history of nicotine dependence - Personal history of transient ischemic attack (TIA), and cerebral infarction without residual deficits 06/16/2025 17:28 [facility] [place] TYPE: Emergency COMPLAINT: - SOB 05/26/2025 09:48 [facility] TYPE: Emergency DIAGNOSES: - Pain, unspecified - Wedge compression fracture of T9-T10 vertebra, initial encounter for closed fracture - Back Pain 03/15/2025 11:07 [facility] [place] TYPE: Emergency DIAGNOSES: - Low back pain, unspecified - flank pain INPATIENT VISIT TRACKING (12 MO.) 06/16/2025 19:00 [facility] [place] TYPE: Medical Surgical COMPLAINT: - COPD EXACERBATION,RESP FAILURE,HYPOXIC COPD CAP DIAGNOSES: - Acute and chronic respiratory failure with hypoxia - Acute respiratory failure with hypoxia - Allergy to other foods - Allergy to other foods - Atherosclerotic heart disease of [place] coronary artery without angina pectoris - Atherosclerotic heart disease of [place] coronary artery without angina pectoris - Body mass index [BMI] 24.0-24.9, adult - Chronic obstructive pulmonary disease with (acute) exacerbation - Chronic obstructive pulmonary disease with (acute) exacerbation - Do not resuscitate - Do not resuscitate - Emphysema, unspecified - Latex allergy status - Latex allergy status - termite treater helper (current) use of aspirin - penitentiary (current) use of aspirin - termite treater helper (current) use of opiate analgesic - penitentiary (current) use of opiate analgesic - termite treater helper (current) use of systemic steroids - Obesity, unspecified - Other chronic pain - Other chronic pain - Other disorders of lung - Other retirement (current) drug therapy - Other termite treater helper (current) drug therapy - Personal history of malignant neoplasm of breast - Personal history of malignant neoplasm of breast - Personal history of nicotine dependence - Personal history of nicotine dependence - Problems related to living alone - Shortness of breath - Unspecified osteoarthritis, unspecified site [email or web address]
[2025-07-02] MEDS ORDERED: ELIQUIS5 MG PO (05:32)
[2025-07-02] MEDS ORDERED: NITROGLYCERIN PACKET TOP ONE (06:00)
[2025-07-02 06:30] LABS: BASOPHILS 0.2 % (0.2-1.2); EOSINOPHILS 1.7 % (0.8-7.0); LYMPHOCYTES 8.9 % (21.8-53.1); MCH 27.8 PG (25.7-32.2); MCHC 32.0 g/dL (32.3-36.5); MCV 86.8 fL (79.0-92.2); MONOCYTES 7.1 % (5.3-12.2); NEUTROPHILS 81.4 % (34.0-67.9); RBC 4.54 M/uL (4.63-6.08)
[2025-07-02 06:42] LABS: INR 1.48 (0.80-1.30); PROTIME 17.0 Sec (11.2-14.2)
[2025-07-02 06:51] LABS: ALT (SGPT) 64.0 U/L (14-59); AST (SGOT) 34.0 U/L (15-37); GLOMERULAR FILTRATION RATE,EST 88.0 mL/min (>60); PROTEIN, TOTAL 5.8 g/dL (6.4-8.2); UREA NITROGEN 19.0 mg/dL (7-18)
[2025-07-02] MEDS ORDERED: HYDROmorphone HCL 2 MG HOME.PACK PO ONE (09:00)
[2025-07-02] MEDS ORDERED: HYDROmorphone HCL 1 MG/ML SYR IV ONE (09:00)
[2025-07-02] MEDS ORDERED: MORPHINE SULFATE 4 MG/ML VIAL IV ONE (09:00)
[2025-07-02] MEDS ORDERED: PREGABALIN 75 MG CAP PO ONE (09:15)
[2025-07-02] MEDS ORDERED: DILAUDID2 MG PO (09:21)
[2025-07-02] MEDS ORDERED: LIDODERM1 EACH TOP (09:21)
[2025-07-02] MEDS ORDERED: LYRICA75 MG PO (09:21)
[2025-07-02] MEDS ORDERED: LIDOCAINE HCL 4% 1 EACH PATCH TD ONE (09:30)
--- NOTE | 2025-07-02 10:24 | EKG ---
[facility] [address] [facility] [place] [address] Signed Normal sinus rhythm Left axis deviation Nonspecific ST and T wave abnormality Abnormal ECG When compared with ECG of 16-JUN-2025 17:40, premature ventricular complexes are no longer present Nonspecific T wave abnormality has replaced inverted T waves in Lateral leads Confirmed by DANY ALDRIDGE MD ([id number]) on 07/02/2025 10:24:07 AM Electronically Signed By: DANY ALDRIDGE 07/02/25 1024 PATIENT NAME: ZAYRA MUÑOZ SIDNEY Electrocardiogram DATE OF : 45 PHYSICIAN: DANY ALDRIDGE REPORT #: [id number] REPORT IS CONFIDENTIAL AND NOT TO BE RELEASED WITHOUT AUTHORIZATION
[2025-07-02] MEDS ORDERED: ALBUTEROL/IPRATROPIUM 3 ML NEB INH ONE (10:30)
[2025-07-02 10:58] VITALS: BP 121/73
== END 2025-07-02 10:58 | disposition home or self-care (01) ==
LOC: ED 05:16
PROVIDERS: Family Medicine
DX: M48.54XA Collapsed vertebra, not elsewhere classified, thoracic region, initial encounter for fracture (principal); J43.9 Emphysema, unspecified; I25.2 Old myocardial infarction; Z87.891 Personal history of nicotine dependence; Z86.73 Personal history of transient ischemic attack (TIA), and cerebral infarction without residual deficits; Z86.718 Personal history of other venous thrombosis and embolism; Z91.018 Allergy to other foods; Z91.040 Latex allergy status; Z79.52 Long term (current) use of systemic steroids; Z79.51 Long term (current) use of inhaled steroids; Z79.82 Long term (current) use of aspirin; Z79.01 Long term (current) use of anticoagulants; Z79.899 Other long term (current) drug therapy
CPT/HCPCS: 36415; 71045; 71275; 74174; 80053; 83735; 84484; 85025; 85610; 93005; 93010; 94640; 96374; 99285-25; A9270; J1171; Q9967

== ENCOUNTER 2025-07-11 13:58 | Emergency (ER) | payer OTHER ==
[~2025-07-11] VITALS: Ht 185.4 cm; Wt 89.4 kg
[~2025-07-11 13:58] MED LIST changes: +DILAUDID2 MG PO; +ELIQUIS5 MG PO; +LYRICA75 MG PO
--- OUTSIDE RECORDS SUMMARY | 2025-07-11 14:05 | XMS ---
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 Jocelyn has no Care Guidelines for this patient. E.DJerad VISIT COUNT (12 MO.) [address] (Jonatan Cheung) TOTAL 7 NOTE: Visits indicate total known visits. ED/C VISIT TRACKING (12 MO.) 07/11/2025 13:58 [facility] [place] TYPE: Emergency COMPLAINT: - EXTREMITY PAIN/REDNESS 07/02/2025 05:16 [facility] [place] TYPE: Emergency COMPLAINT: - CHEST PAIN DIAGNOSES: - Allergy to other foods - Chest pain, unspecified - Collapsed vertebra, not elsewhere classified, thoracic region, initial encounter for fracture - Emphysema, unspecified - Latex allergy status - penitentiary (current) use of anticoagulants - penitentiary (current) use of aspirin - terminal worker (current) use of inhaled steroids - penitentiary (current) use of systemic steroids - Old myocardial infarction - Other intermediate card tender (current) drug therapy - Personal history of nicotine dependence - Personal history of other venous thrombosis and embolism - Personal history of transient ischemic attack (TIA), and cerebral infarction without residual deficits [facility]26[facility]2025 16[facility]: [facility] DIAGNOSES: - Acute embolism and thrombosis of right femoral vein - leg pain - Leg Swelling 06/24/2025 13:38 [facility] [place] TYPE: Emergency COMPLAINT: - BACK PAIN DIAGNOSES: - Allergy to other foods - Collapsed vertebra, not elsewhere classified, thoracic region, initial encounter for fracture - Latex allergy status - penitentiary (current) use of aspirin - terminal worker (current) use of inhaled steroids - penitentiary (current) use of systemic steroids - Old myocardial infarction - Other dorsalgia - Other intermediate card tender (current) drug therapy - Other specified chronic obstructive pulmonary disease - Other specified postprocedural states - Personal history of nicotine dependence - Personal history of transient ischemic attack (TIA), and cerebral infarction without residual deficits 06/16/2025 17:28 [facility] [place] TYPE: Emergency COMPLAINT: - SOB 05/26/2025 09:48 [facility] TYPE: Emergency DIAGNOSES: - Pain, unspecified - Wedge compression fracture of T9-T10 vertebra, initial encounter for closed fracture - Back Pain 03/15/2025 11:07 [facility] [place] TYPE: Emergency DIAGNOSES: - Low back pain, unspecified - flank pain INPATIENT VISIT TRACKING (12 MO.) 06/16/2025 19:00 [facility] [place] TYPE: Medical Surgical COMPLAINT: - COPD EXACERBATION,RESP FAILURE,HYPOXIC COPD CAP DIAGNOSES: - Acute and chronic respiratory failure with hypoxia - Acute respiratory failure with hypoxia - Allergy to other foods - Allergy to other foods - Atherosclerotic heart disease of [place] coronary artery without angina pectoris - Atherosclerotic heart disease of [place] coronary artery without angina pectoris - Body mass index [BMI] 24.0-24.9, adult - Chronic obstructive pulmonary disease with (acute) exacerbation - Chronic obstructive pulmonary disease with (acute) exacerbation - Do not resuscitate - Do not resuscitate - Emphysema, unspecified - Latex allergy status - Latex allergy status - penitentiary (current) use of aspirin - penitentiary (current) use of aspirin - penitentiary (current) use of opiate analgesic - terminal worker (current) use of opiate analgesic - penitentiary (current) use of systemic steroids - Obesity, unspecified - Other chronic pain - Other chronic pain - Other disorders of lung - Other group home (current) drug therapy - Other group home (current) drug therapy - Personal history of malignant neoplasm of breast - Personal history of malignant neoplasm of breast - Personal history of nicotine dependence - Personal history of nicotine dependence - Problems related to living alone - Shortness of breath - Unspecified osteoarthritis, unspecified site [email or web address]
[2025-07-11 15:30] LABS: BASOPHILS 0.2 % (0.2-1.2); EOSINOPHILS 0.5 % (0.8-7.0); LYMPHOCYTES 6.9 % (21.8-53.1); MCH 28.2 PG (25.7-32.2); MCHC 32.3 g/dL (32.3-36.5); MCV 87.1 fL (79.0-92.2); MONOCYTES 7.9 % (5.3-12.2); NEUTROPHILS 84.2 % (34.0-67.9); RBC 4.51 M/uL (4.63-6.08)
[2025-07-11 15:41] LABS: ALT (SGPT) 97.0 U/L (14-59); AST (SGOT) 43.0 U/L (15-37); GLOMERULAR FILTRATION RATE,EST 87.0 mL/min (>60); PROTEIN, TOTAL 6.4 g/dL (6.4-8.2); UREA NITROGEN 11.0 mg/dL (7-18)
[2025-07-11] MEDS ORDERED: SODIUM CHLORIDE 0.9% 1,000 ML IV SCH (16:30)
[2025-07-11] MEDS ORDERED: HYDROmorphone HCL 1 MG/ML SYR IV PRN (16:30)
[2025-07-11] MEDS ORDERED: CEPHALEXIN500 M1 PO ×2 (18:17→18:18)
[2025-07-11 20:13] VITALS: BP 107/74
--- NOTE | 2025-07-12 14:17 | EKG ---
[facility] [address] [facility] [place] [address] Signed Normal sinus rhythm Left axis deviation Septal infarct , age undetermined Abnormal ECG When compared with ECG of 02-JUL-2025 05:21, Septal infarct is now present Confirmed by Sukumar Mcconnell DO ([id number]) on 07/12/2025 2:17:44 PM Electronically Signed By: SUKUMAR MCCONNELL DO 07/12/25 1417 PATIENT NAME: TONIZAYRA SIDNEY Electrocardiogram DATE OF : 45 PHYSICIAN: SUKUMAR MCCONNELL DO REPORT #: [id number] REPORT IS CONFIDENTIAL AND NOT TO BE RELEASED WITHOUT AUTHORIZATION
== END 2025-07-11 20:00 | disposition home or self-care (01) ==
LOC: ED 13:58
PROVIDERS: Emergency Medicine
DX: L03.115 Cellulitis of right lower limb (principal); J44.89 Other specified chronic obstructive pulmonary disease; I25.2 Old myocardial infarction; Z95.828 Presence of other vascular implants and grafts; Z86.718 Personal history of other venous thrombosis and embolism; Z86.73 Personal history of transient ischemic attack (TIA), and cerebral infarction without residual deficits; Z87.891 Personal history of nicotine dependence; Z91.02 Food additives allergy status; Z91.040 Latex allergy status; Z91.018 Allergy to other foods; Z79.01 Long term (current) use of anticoagulants; Z79.52 Long term (current) use of systemic steroids; Z79.82 Long term (current) use of aspirin; Z79.899 Other long term (current) drug therapy
CPT/HCPCS: 36415; 74177; 80053; 83690; 84484; 85025; 96365; 96375; 96376; 99284-25; J0696; J1171; J7030; Q9967

== ENCOUNTER 2025-07-17 21:13 | Inpatient (IN) | payer OTHER, MEDICARE ==
[~2025-07-17] VITALS: Ht 185.4 cm; Wt 89.8 kg
[~2025-07-17 21:13] MED LIST changes: +CEPHALEXIN500 M1 PO
--- OUTSIDE RECORDS SUMMARY | 2025-07-17 21:20 | XMS ---
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 Jocelyn has no Care Guidelines for this patient. E.DJerad VISIT COUNT (12 MO.) [address] (Jonatan Cheung) TOTAL 8 NOTE: Visits indicate total known visits. ED/UCC VISIT TRACKING (12 MO.) 07/17/2025 21:14 [facility] [place] TYPE: Emergency COMPLAINT: - BACK PAIN 07/11/2025 13:58 [facility] [place] TYPE: Emergency COMPLAINT: - EXTREMITY PAIN/REDNESS DIAGNOSES: - Allergy to other foods - Cellulitis of right lower limb - Food additives allergy status - Latex allergy status - long term (current) use of anticoagulants - shelter (current) use of aspirin - shelter (current) use of systemic steroids - Old myocardial infarction - Other retirement (current) drug therapy - Other specified chronic obstructive pulmonary disease - Pain in right lower leg - Personal history of nicotine dependence - Personal history of other venous thrombosis and embolism - Personal history of transient ischemic attack (TIA), and cerebral infarction without residual deficits - Presence of other vascular implants and grafts 07/02/2025 05:16 [facility] [place] TYPE: Emergency COMPLAINT: - CHEST PAIN DIAGNOSES: - Allergy to other foods - Chest pain, unspecified - Collapsed vertebra, not elsewhere classified, thoracic region, initial encounter for fracture - Emphysema, unspecified - Latex allergy status - long term (current) use of anticoagulants - long term (current) use of aspirin - long term (current) use of inhaled steroids - shelter (current) use of systemic steroids - Old myocardial infarction - Other retirement (current) drug therapy - Personal history of nicotine dependence - Personal history of other venous thrombosis and embolism - Personal history of transient ischemic attack (TIA), and cerebral infarction without residual deficits [facility]26[facility]2025 16:[facility]: Emergency DIAGNOSES: - Acute embolism and thrombosis of right femoral vein - leg pain - Leg Swelling 06/24/2025 13:38 [facility] [place] TYPE: Emergency COMPLAINT: - BACK PAIN DIAGNOSES: - Allergy to other foods - Collapsed vertebra, not elsewhere classified, thoracic region, initial encounter for fracture - Latex allergy status - long term (current) use of aspirin - long term (current) use of inhaled steroids - shelter (current) use of systemic steroids - Old myocardial infarction - Other dorsalgia - Other superintendent container terminal (current) drug therapy - Other specified chronic obstructive pulmonary disease - Other specified postprocedural states - Personal history of nicotine dependence - Personal history of transient ischemic attack (TIA), and cerebral infarction without residual deficits 06/16/2025 17:28 [facility] [place] TYPE: Emergency COMPLAINT: - SOB 05/26/2025 09:48 [facility] TYPE: Emergency DIAGNOSES: - Pain, unspecified - Wedge compression fracture of T9-T10 vertebra, initial encounter for closed fracture - Back Pain 03/15/2025 11:07 [facility] [place] TYPE: Emergency DIAGNOSES: - [...] other foods - Atherosclerotic heart disease of [place] coronary artery without angina pectoris - Atherosclerotic heart disease of [place] coronary artery without angina pectoris - Body mass index [BMI] 24.0-24.9, adult - Chronic obstructive pulmonary disease with (acute) exacerbation - Chronic obstructive pulmonary disease with (acute) exacerbation - Do not resuscitate - Do not resuscitate - Emphysema, unspecified - Latex allergy status - Latex allergy status - long term (current) use of aspirin - shelter (current) use of aspirin - long term (current) use of opiate analgesic - shelter (current) use of opiate analgesic - long term (current) use of systemic steroids - Obesity, unspecified - Other chronic pain - Other chronic pain - Other disorders of lung - Other retirement (current) drug therapy - Other superintendent container terminal (current) drug therapy - Personal history of malignant neoplasm of breast - Personal history of malignant neoplasm of breast - Personal history of nicotine dependence - Personal history of nicotine dependence - Problems related to living alone - Shortness of breath - Unspecified osteoarthritis, unspecified site [email or web address]
[2025-07-17 21:41] LABS: BASOPHILS 0.4 % (0.2-1.2); EOSINOPHILS 2.9 % (0.8-7.0); LYMPHOCYTES 13.6 % (21.8-53.1); MCH 28.1 PG (25.7-32.2); MCHC 31.8 g/dL (32.3-36.5); MCV 88.3 fL (79.0-92.2); MONOCYTES 10.6 % (5.3-12.2); NEUTROPHILS 72.3 % (34.0-67.9); RBC 4.20 M/uL (4.63-6.08)
[2025-07-17 21:59] LABS: ALT (SGPT) 100.0 U/L (14-59); AST (SGOT) 57.0 U/L (15-37); GLOMERULAR FILTRATION RATE,EST 90.0 mL/min (>60); PROTEIN, TOTAL 5.7 g/dL (6.4-8.2); UREA NITROGEN 14.0 mg/dL (7-18)
[2025-07-17] MEDS ORDERED: MORPHINE SULFATE 4 MG/ML VIAL IV ONE (22:30)
[2025-07-17] MEDS ORDERED: HYDROCODON-ACE1 EA10 PO (23:33)
[2025-07-17] MEDS ORDERED: HYDROCODONE BIT/ACETAMINOPHEN 5/325 MG 1 TAB HOME.PACK PO ONE (23:45)
[2025-07-18] MEDS ORDERED: CEPHALEXIN MONOHYDRATE 500 MG CAP PO ONE (02:30)
[2025-07-18] MEDS ORDERED: GABAPENTIN 300 MG CAP PO ONE (02:30)
[2025-07-18] MEDS ORDERED: DOXEPIN HCL 10 MG CAP PO ONE (02:30)
[2025-07-18] MEDS ORDERED: APIXABAN 5 MG TAB PO ONE (02:30)
[2025-07-18] MEDS ORDERED: BENZONATATE 100 MG CAP PO ONE (02:30)
[2025-07-18] MEDS ORDERED: ALBUTEROL/IPRATROPIUM 3 ML NEB INH ONE ×2 (03:30→07:30)
[2025-07-18] MEDS ORDERED: SODIUM CHLORIDE 0.9% 1,000 ML IV SCH (12:00)
[2025-07-18] MEDS ORDERED: ACETAMINOPHEN 325 MG TAB PO PRN (12:00)
[2025-07-18] MEDS ORDERED: PHARMACY RENAL DOSE ADJUSTMENT 1 DOSE MISC PO SCH (12:00)
--- NOTE | 2025-07-18 12:47 | NUR ---
TELEPHONE REPORT RECEIVED FROM ABDIRAHMAN TREJO.
[2025-07-18 13:13] VITALS: BP 126/66
[2025-07-18] MEDS ORDERED: ALBUTEROL SULFATE 0.083% 3 ML VIAL INH PRN (13:30)
--- NOTE | 2025-07-18 14:13 | NUR ---
ADMISSION COMPLETE. PATIENT IS ALERT AND ORIENTED TIMES FOUR. PATIENT WITH TWO FAMILY MEMBERS PRESENT IN THE ROOM. CARDIAC WITH NORMAL S1 AND S2 ON AUSCULTATION. RADIAL AND PEDAL PULSES ARE STRONG BILATERALLY. CAPILLARY REFILL IN THE UPPER AND LOWER EXTREMITIES IS LESS THAN 3 SECONDS BILATERALLY. 3+ PITTING EDEMA NOTED IN THE BLE. PATIENT IS ON 2 L NC. LUNG SOUNDS ARE DIMINISHED IN THE UPPER LOBES WITH CRACKLES IN THE BASES BILATERALLY. PATIENT IS ON 2-3L NC AT BASELINE. PATIENT IS ON A REGULAR DIET AND BOWEL TONES ARE ACTIVE IN ALL FOUR QUADRANTS. PATIENT LAST BM WAS 07/16/25. PATIENT IS DUE TO VOID. IV SITE FLUSHED WITH 10 ML NORMAL SALINE. NS IS INFUSING AT 125 ML/HR. IV DRESSING IS CLEAN, DRY, AND INTACT. PATIENT RATED PAIN 10/10 IN THE BACK, CHEST, AND BILATERAL SHINS. SKIN WITH SCATTERED BRUISING, SCABS, AND SCARS NOTED. REDNESS NOTED TO THE RLE THAT HAS BEEN OUTLINED. FRESH ICE WATER PROVIDED. PATIENT STATED NO FURTHER NEEDS AT THIS TIME. CALL LIGHT AND PERSONAL BELONGINGS ARE WITHIN REACH.
[2025-07-18 14:18] VITALS: BP 126/66
--- NOTE | 2025-07-18 14:26 | NUR ---
NOTIFIED OF HAVING TYLENOL FOR PAIN. MD STATED HE WOULD PUT IN ORDERS FOR PAIN MEDICATION. ALSO NOTIFIED OF OF DRESSING TO THE RLE BEING REMOVED. RN SAW NOTHING OPEN ON THE RLE. REPORTED WE CAN LEAVE THE BALA WRAP OFF AT THIS TIME. NO FURTHER ORDERS AT THIS TIME.
[2025-07-18] MEDS ORDERED: predniSONE 10 MG TAB PO SCH (14:41)
[2025-07-18] MEDS ORDERED: HYDROCODONE/ACETA 5/325 TAB PO PRN (14:45)
[2025-07-18] MEDS ORDERED: BENZONATATE 100 MG CAP PO PRN (14:45)
[2025-07-18] MEDS ORDERED: ALBUTEROL/IPRATROPIUM 3 ML NEB INH SCH (16:00)
--- NOTE | 2025-07-18 16:26 | NUR ---
PATIENT IS BACK IN BED FROM THE COMMODE UPON THIS RN AND CONNIE BENNETT AND CONNIE MOYA ENTERING THE ROOM. PATIENT EDUCATED AGAIN ON USING THE CALL LIGHT PRIOR TO GETTING UP. PATIENT WITH A BRUISE NOTED ON THE LEFT BUTTOCK. COCCYX WITH NO REDNESS NOTED. PATIENT STATED NO FURTHER NEEDS. CONNIE MOYA REMAINS IN THE ROOM TO ASSIST PATIENT BACK IN BED.
[2025-07-18] MEDS ORDERED: PULMICORT0.5 MG/2 M INH (16:44)
[2025-07-18] MEDS ORDERED: BROVANA15 MCG/2 M INH (16:46)
[2025-07-18] MEDS ORDERED: VITAMIN B-121000 MCG PO (16:46)
[2025-07-18] MEDS ORDERED: MAXI-TUSS AC L473 ML PO (16:50)
[2025-07-18 17:00] VITALS: BP 105/64
[2025-07-18] MEDS ORDERED: CEPHALEXIN MONOHYDRATE 500 MG CAP PO SCH (17:00)
[2025-07-18 17:03] VITALS: BP 105/64
--- NOTE | 2025-07-18 18:27 | NUR ---
PT IS SITTING UP IN BED, VISITING WITH FAMILY. CALL LIGHT AND PERSONAL BELONGINGS ARE WITHIN REACH. NASAL CANNULA SECURELY ON FACE
--- NOTE | 2025-07-18 19:29 | NUR ---
REPORT RECIEVED FROM ABDIRAHMAN CAVAZOS. PATIENT RESTING IN BED. CALL LIGHT AND PERSONAL BELONGINGS ARE WITHIN REACH.
--- NOTE | 2025-07-18 19:48 | EKG ---
[facility] [address] [place] [address] Signed Normal sinus rhythm Left axis deviation Abnormal ECG When compared with ECG of 11-JUL-2025 15:32, Criteria for Septal infarct are no longer present Confirmed by Светлана Mcmahon MD () on 07/18/2025 7:47:47 PM Electronically Signed By: СВЕТЛАНА MCMAHON MD 07/18/251947 PATIENT NAME: TONIZAYRA SIDNEY Electrocardiogram DATE OF : 45 PHYSICIAN: СВЕТЛАНА MCMAHON MD REPORT #: [id number] REPORT IS CONFIDENTIAL AND NOT TO BE RELEASED WITHOUT AUTHORIZATION
[2025-07-18] MEDS ORDERED: BUDESONIDE 0.5 MG/2 ML VIAL INH SCH (20:00)
[2025-07-18] MEDS ORDERED: ARFORMOTEROL TARTRATE 15 MCG/2 ML VIAL INH SCH (20:00)
--- NOTE | 2025-07-18 20:00 | NUR ---
PATIENT MEDICATED PER EMAR. WARM BLANKETS PROVIDED. PATIENT WITHOUT FURTHER NEEDS AT THIS TIME. CALL LIGHT AND PERSONAL BELONGINGS ARE WITHIN REACH.
[2025-07-18 20:26] VITALS: BP 105/64
[2025-07-18] MEDS ORDERED: APIXABAN 5 MG TAB PO SCH (21:00)
[2025-07-18] MEDS ORDERED: GABAPENTIN 300 MG CAP PO SCH (21:00)
[2025-07-18] MEDS ORDERED: DOXEPIN HCL 10 MG CAP PO SCH (21:00)
[2025-07-18] MEDS ORDERED: ATORVASTATIN 40 MG TAB PO SCH (21:00)
--- NOTE | 2025-07-18 21:00 | NUR ---
PATIENT MEDICATED PER EMAR. FRESH WATER PROVIDED. PATIENT UP TO BEDSIDE COMMODE VIA 1PERSON ASSIST WITH THE FWW. CONNIE NASH IN ROOM TO ASSIST PATIENT BACK TO BED. CALL LIGHT AND PERSONAL BELONGINGS ARE WITHIN REACH.
[2025-07-18 22:15] VITALS: BP 105/64
--- NOTE | 2025-07-18 22:19 | NUR ---
NEW BAG OF IV FLUIDS INFUSING. IV FLUSHED WITH 10ML OF NS, DRESSING IS INTACT. IV FLUIDS INFUSING PER ORDER. PATIENT IS RESTING IN BED WITH HIS EYES CLOSED. EVEN AND UNLABORED RESPIRATIONS NOTED. CALL LIGHT AND PERSONAL BELONGINGS ARE WITHIN REACH. BED ALARM ACTIVATED FOR SAFETY.
--- NOTE | 2025-07-18 23:08 | NUR ---
PATIENT MEDICATED PER EMAR. TELE #5 PLACED ON PATIENT, PER MD ORDER. PATIENT RESTING IN BED, EASILY AROUSABLE. PATIENT WITHOUT ANY NEEDS AT THIS TIME. CALL LIGHT AND PERSONAL BELONGINGS ARE WITHIN REACH.
[2025-07-19] VITALS (12 sets, daily range): BP systolic 95–117; BP diastolic 56–65
--- NOTE | 2025-07-19 00:38 | NUR ---
PATIENT MEDICATED PER EMAR. FRESH WATER PROVIDED. IV FLUIDS INFUSING PER ORDER. PATIENT WITHOUT FURTHER NEEDS AT THIS TIME. VITAL SIGNS TAKEN AND ARE STABLE. CALL LIGHT AND PERSONAL BELONGINGS ARE WITHIN REACH.
--- NOTE | 2025-07-19 01:41 | NUR ---
PATIENT RESTING IN BED WITH HOB ELEVATED, PATIENT EYES CLOSED. EVEN AND UNLABORED RESPIRATIONS NOTED. CALL LIGHT AND PERSONAL BELONGINGS ARE WITHIN REACH.
--- NOTE | 2025-07-19 04:00 | NUR ---
PATIENT RESTING IN BED WITH HOB ELEVATED. PATIENT EYES ARE CLOSED, EVEN AND UNLABORED RESPIRATIIONS NOTED. CALL LIGHT AND PERSONAL BELONGINGS ARE WITHIN REACH.
[2025-07-19 05:37] LABS: BASOPHILS 0.2 % (0.2-1.2); EOSINOPHILS 1.3 % (0.8-7.0); LYMPHOCYTES 11.8 % (21.8-53.1); MCH 28.5 PG (25.7-32.2); MCHC 32.8 g/dL (32.3-36.5); MCV 87.0 fL (79.0-92.2); MONOCYTES 9.8 % (5.3-12.2); NEUTROPHILS 76.7 % (34.0-67.9); RBC 3.61 M/uL (4.63-6.08)
--- NOTE | 2025-07-19 05:40 | NUR ---
PATIENT MEDICATED PER EMAR. VITAL SIGNS TAKEN AND ARE STABLE. ORTHOSTATIC VITALS NOT TAKEN AT THIS TIME DUE TO PATIENT TOO PAINFUL TO GET UP. WILL PASS ON TO DAY SHIFT. FRESH ICE WATER PROVIDED. INTAKE AND OUTPUT DOCUMENTED. PATIENT WITHOUT FURTHER NEEDS AT THIS TIME. CALL LIGHT AND PERSONAL BELONGINGS ARE WITHIN REACH.
[2025-07-19 05:58] LABS: ALT (SGPT) 72.0 U/L (14-59); AST (SGOT) 38.0 U/L (15-37); GLOMERULAR FILTRATION RATE,EST 92.0 mL/min (>60); PHOSPHORUS, INORGANIC 3.0 mg/dL (2.5-4.9); PROTEIN, TOTAL 4.9 g/dL (6.4-8.2); UREA NITROGEN 9.0 mg/dL (7-18)
--- NOTE | 2025-07-19 06:58 | NUR ---
PATIENT IS LYING IN BED WITH HOB ELEVATED. PATIENT WITH EYES OPEN AND RESPIRATIONS ARE EVEN AND UNLABORED. NC IN PLACE WITH THE CPOX AT BEDSIDE. CONNIE NASH IS IN THE ROOM. PATIENT STATED NO FURTHER NEEDS AT THIS TIME. CALL LIGHT AND PERSONAL BELONGINGS ARE WITHIN REACH.
--- NOTE | 2025-07-19 07:30 | NUR ---
PATIENT IS LYING IN BED WITH HOB ELEVATED. PATIENT WITH EYES OPEN AND RESPIRATIONS ARE EVEN AND UNLABORED. FULL ASSESSMENT COMPLETE AND DOCUMENTED IN THE CHART. PATIENT IS ALERT AND ORIENTED TIMES FOUR. CARDIAC WITH NORMAL S1 AND S2 ON AUSCULTATION. PATIENT IS ON TELEMETRY NUMBER 5 IN SINUS RHYTHM RADIAL AND PEDAL PULSES ARE STRONG BILATERALLY. 3+ PITTING EDEMA NOTED IN THE BLE. REDNESS OUTLINED ON THE RLE. PATIENT IS ON 2L NC WITH THE CPOX AT BEDSIDE. LUNG SOUNDS ARE DIMINISHED THROUGHOUT. LAST BM WAS 07/16/25. IV SITE IS CLEAN, DRY, AND INTACT. LR IS INFUSING AT 125 ML/HR. SKIN WITH SCATTERED SCABS, SCARS, AND BRUISING NOTED. PATIENT RATED PAIN 9/10 IN THE BACK, SHINS, AND CHEST. RN EDUCATED PATIENT ON LOOKING AT WHAT IS AVAILABLE AND THEN BRINGING IT IN. PATIENT EXPRESSED UNDERSTANDING. PATIENT STATED NO FURHTER NEEDS AT THIS TIME.
[2025-07-19] MEDS ORDERED: BUDESONIDE 0.5 MG/2 ML VIAL INH SCH (08:00)
--- NOTE | 2025-07-19 08:22 | NUR ---
PATIENT IS LYING IN BED WITH HOB ELEVATED. NC IN PLACE. PATIENT WITH EYES OPEN AND RESPIRATIONS ARE EVEN AND UNLABORED. CALL LIGHT AND PERSONAL BELONGINGS ARE WITHIN REACH.
[2025-07-19] MEDS ORDERED: METOPROLOL SUCCINATE 25 MG TABCR PO SCH (09:00)
[2025-07-19] MEDS ORDERED: FLU (Fluad) 2025-26 (65UP)/MF59C/PF 45 MCG/0.5 ML IM ONE (09:00)
[2025-07-19] MEDS ORDERED: ASPIRIN 81 MG CHEW PO SCH (09:00)
[2025-07-19] MEDS ORDERED: TAMOXIFEN CITRATE 10 MG TAB PO SCH (09:00)
--- NOTE | 2025-07-19 10:30 | NUR ---
PATIENT IS SITTING UPRIGHT IN THE CHAIR. PATIENT WITH EYES OPEN AND RESPIRATIONS ARE EVEN AND UNLABORED. NC INPLACE. PATIENT WITH SEVERAL VISITORS IN THE ROOM AT THIS TIME. IN THE ROOM. CALL LIGHT AND PERSONAL BELONGINGS ARE WITHIN REACH.
--- NOTE | 2025-07-19 11:21 | NUR ---
PATIENT LEFT THE FLOOR AND IS GOING FOR A HEAD CT AT THIS TIME.
--- NOTE | 2025-07-19 13:44 | NUR ---
PATIENT IS LYING IN BED WITH EYES OPEN AND RESPIRATIONS ARE EVEN AND UNLABORED. HOB IS ELEVATED AND THE PATIENT IS ON NC. PATIENT IS PLAYING A CARD GAME WITH HIS GRANDSON. 3 OTHER VISITORS ARE ALSO IN THE ROOM. PATIENT STATED NO FURTHER NEEDS AT THIS TIME. CALL LIGHT AND PERSONAL BELONGINGS ARE WITHIN REACH.
--- NOTE | 2025-07-19 14:50 | NUR ---
PATIENT IS LYING IN BED WITH HOB ELEVATED. PATIENT WITH EYES OPEN AND RESPIRATIONS ARE EVEN AND UNLABORED. PATIENT WITH THREE VISITORS IN THE ROOM. PATIENT IS ALERT AND ORIENTED TIMES FOUR. PATIENT RATED PAIN 10/10 IN THE CHEST, BACK, AND BILATERAL SHINS. PATIENT IS ON TELEMETRY NUMBER 5 AND IN SINUS RHYTHM. PATIENT IS ON 2 L NC. LUNG SOUNDS ARE CLEAR THROUGHOUT WITH THE CPOX AT BEDSIDE. IV SITE REMAINS CLEAN, DRY, AND INTACT. IV SITE PULLS BACK BLOOD. PATIENT GOT DILAUDID FOR PAIN. PATIENT AND FAMILY STATED NO FURTHER NEEDS AT THIS TIME. CALL LIGHT AND PERSONAL BELONGINGS ARE WITHIN REACH.
--- NOTE | 2025-07-19 15:43 | NUR ---
PATIENT IS LYING IN BED WITH HOB ELEVATED. PATIENT WITH THREE VISITORS IN THE ROOM. PATIENT WITH EYES OPEN AND RESPIRATIONS ARE EVEN AND UNLABORED. NC IN PLACE. PATIENT REPORTS HAVING TO USE THE RESTROOM. TASK DELEGATED TO CONINE OLSON. CALL LIGHT AND PERSONAL BELONGINGS ARE WITHIN REACH.
--- NOTE | 2025-07-19 16:03 | NUR ---
PATIENT WAS ASSISTED TO THE BATHROOM WITH FWW. PATIENT IS LAYING IN BED. PATIENTS CALL LIGHT IS WITHIN REACH AND NO FURTHER NEEDS AT THIS TIME.
--- NOTE | 2025-07-19 16:26 | NUR ---
PATIENT IS LYING IN BED WITH HOB ELEVATED. PATIENT WITH EYES OPEN AND RESPIRATIONS ARE EVEN AND UNLABORED. PATIENT RATED PAIN 9/10 AFTER DILAUDID ADMINISTRATION. PATIENT WITH TWO VISITORS IN THE ROOM. PATIENT STATED NO FURTHER NEEDS AT THIS TIME. CALL LIGHT AND PERSONAL BELONGINGS ARE WITHIN REACH.
--- NOTE | 2025-07-19 19:37 | NUR ---
REPORT RECIEVED FROM ABDIRAHMAN CAVAZOS. PATIENT MEDICATED PER EMAR FOR 10 PAIN. PATIENT ASSESSMENT COMPLETED. PATIENT WITHOUT FURTHER NEEDS AT THIS TIME. IV FLUIDS INFUSING PER ORDER. CALL LIGHT AND PERSONAL. BELONGINGS ARE WITHIN REACH.
--- NOTE | 2025-07-19 20:45 | NUR ---
PATIENT MEDICATED PER EMAR. FRESH ICE WATER PROVIDED. IV FLUIDS INFUSING PER ORDER. PATIENT WITHOUT FURTHER NEEDS AT THIS TIME. CALL LIGHT AND PERSONAL BELONGINGS ARE WITHIN REACH.
--- NOTE | 2025-07-19 22:07 | NUR ---
PATIENT SITTING UP IN BED AND DENIES ANY NEEDS AT THIS TIME. CALL LIGHT AND PERSONAL BELONGINGS ARE WITHIN REACH.
--- NOTE | 2025-07-19 23:55 | NUR ---
PATIENT RESTING IN BED WITH HIS EYES CLOSED. EVEN AND UNLABORED RESPIRATIONS NOTED. CALL LIGHT AND PERSONAL BELONGINGS ARE WITHIN REACH.
[2025-07-20] VITALS (9 sets, daily range): BP systolic 108–128; BP diastolic 63–79
--- NOTE | 2025-07-20 00:29 | NUR ---
PATIENT UP TO BATHROOM WITH CONNIE CREWS.
--- NOTE | 2025-07-20 00:30 | NUR ---
PATIENT CALLED TO USE THE RESTROOM. SBA FOR CORDS MANAGEMENT. NOTICED PATIENT HAVING SHORTNESS OF BREATH. PATIENT IS IN 2LNC. PATIENT STATED SUPPOSEDLY IN 3L WHEN IM UP, BUT IM IN BED NOW, I'M OKAY. PATIENT VOIDED UNMEASURED AND FLUSHED IT. WATER WITHOUT ICE REFILLED PER PATIENT. RIGHT LEG ELEVATED. NO OTHER NEEDS AT THIS TIME. CALL LIGHT AND SIDE TABLE WITHIN REACH.
--- NOTE | 2025-07-20 00:37 | NUR ---
PATIENT MEDICATED PER EMAR. PATIENT WITHOUT FURTHER NEEDS AT THIS TIME. CALL LIGHT AND PERSONAL BELONGINGS ARE WITHIN REACH.
--- NOTE | 2025-07-20 01:50 | NUR ---
PATIENT RESTING IN BED WITH HIS EYES CLOSED. EVEN AND UNLABORED RESPIRATIONS NOTED. CALL LIGHT AND PERSONAL BELONGINGS ARE WITHIN REACH.
--- NOTE | 2025-07-20 04:45 | NUR ---
PATIENT UP TO THE BATHROOM WITH CONNIE CREWS. PATIENT BACK TO BED. INTAKE AND OUTPUT DOCUMENTED. VITAL SIGNS TAKEN AND ARE STABLE. PATIENT MEDICATED PER EMAR. PATIENT WITHOUT FURTHER NEEDS AT THIS TIME. CALL LIGHT AND PERSONAL BELONGINGS ARE WITHIN REACH.
--- NOTE | 2025-07-20 04:45 | NUR ---
PATIENT UP TO THE BATHROOM AND BACK TO BED. PATIENT MEDICATED PER EMAR. VITAL SIGNS TAKEN AND ARE STABLE. PATIENT WITHOUT FURTHER NEEDS AT THIS TIME. CALL LIGHT AND PERSONAL BELONGINGS ARE WITHIN REACH.
[2025-07-20 05:39] LABS: BASOPHILS 0.5 % (0.2-1.2); EOSINOPHILS 2.8 % (0.8-7.0); LYMPHOCYTES 19.0 % (21.8-53.1); MCH 28.6 PG (25.7-32.2); MCHC 32.3 g/dL (32.3-36.5); MCV 88.3 fL (79.0-92.2); MONOCYTES 10.3 % (5.3-12.2); NEUTROPHILS 67.2 % (34.0-67.9); RBC 3.43 M/uL (4.63-6.08)
[2025-07-20 06:00] LABS: ALT (SGPT) 62.0 U/L (14-59); AST (SGOT) 29.0 U/L (15-37); GLOMERULAR FILTRATION RATE,EST 94.0 mL/min (>60); PROTEIN, TOTAL 4.7 g/dL (6.4-8.2); UREA NITROGEN 9.0 mg/dL (7-18)
--- NOTE | 2025-07-20 06:46 | NUR ---
PATIENT MEDICATED PER EMAR. NEW BAG OF IV FLUIDS INFUSING. FRESH ICE WATER PROVIDED. PATIENT WITHOUT FURTHER NEEDS AT THIS TIME. CALL LIGHT AND PERSONAL BELONGINGS ARE WITHIN REACH.
--- NOTE | 2025-07-20 07:52 | NUR ---
REPORT RECEIVED FROM ABDIRAHMAN DEUTSCH. PT IN BED AND DENIES NEEDS ATT.
[2025-07-20] MEDS ORDERED: IPRATROPIUM BROMIDE 2.5 ML VIAL INH SCH (08:00)
--- NOTE | 2025-07-20 08:46 | NUR ---
CONNIE PRAJAPATI HELPED SAFELY TRANSFER PATIENT FROM BED INTO BEDSIDE COMMODE. PATIENT VOIDED 425 ML OF URINE. CONNIE PRAJAPATI HELPED TRANSFER THE PATIENT FROM BEDSIDE COMMODE INTO THE BED AGAIN SHORTLY AFTER. PATIENT BEGAN COUGHING BUT CLAIMED HE DID NOT NEED A NURSE AT BEDSIDE. NURSE BROUGHT IN HIS BREAKFAST AND CONNIE PRAJAPATI HELPED PLACE HIS BREAKFAST ONTO THE BEDSIDE TABLE FOR THE PATIENT TO EAT.
--- NOTE | 2025-07-20 08:47 | NUR ---
PT SITTING UP IN BED EATING BREAKFAST. VS STABLE. ADMINISTERED MORNING MEDS. TALKING ABOUT HIS AILMENTS AND FEELS LIKE HE IS GETTING BETTER.
[2025-07-20] MEDS ORDERED: AZITHROMYCIN 250 MG TAB PO SCH (09:00)
--- NOTE | 2025-07-20 09:39 | NUR ---
IN MORNING MEETING, STAFF STATE PATIENT IS PENDING ADMISSION TO [facility] AT [facility]. CALLED AND SPOKE WITH DEDE IN ADMITTING AT [facility] AND THEY HAVE NO RECORDS OF THE PATIENT.
--- NOTE | 2025-07-20 10:22 | NUR ---
UR CLINICAL REVIEW: MCG-PER MCG REVIEW MEETS OBS FOR COPD WITH NEED FOR MONITORING, PT/OT AND RT [facility] OBS 07/17/25 @ 1200 ORDER MATCHES REG CLINICALS FAXED TO [place] FOR REVIEW PATIENT AWAITING PLACMENT PER FAMILY. STAY GREATER THAN 2 MN ANTICIPATED.SENT TO [facility] FOR STATUS REVIEW 07/21/25 DC REVIEW
--- NOTE | 2025-07-20 10:29 | NUR ---
PT ASKED PHYS THERAPY FOR COUGH MEDS. WILL ADMINISTER ORDERED TESSLON.
--- NOTE | 2025-07-20 11:23 | NUR ---
PATIENT DID HIS AM CARE. COMBED HIS HAIR. ALO CHANGED BED LINENS. NOW HE IS GETTING READY TO PLAY RUMMY WITH HIS VISITORS. PATIENT IS SITTING UP IN HIS CHAIR WITH BRACE ON.
--- NOTE | 2025-07-20 12:19 | NUR ---
PATIENT ALERT IN RECLINER, VISITORS IN ROOM. PATIENT STATES HOME HEALTH HAS STARTED TO WORK WITH HIM. DIFFICULTY ANSWERING QUESTIONS REGARDING PLACEMENT OR ANY NEEDS AT HOME. STATES HE WOULD PREFER THIS NURSE CONTACT HIS DAUGHTER AND VISIT WITH HER REGARDING HIS NEEDS.
--- NOTE | 2025-07-20 12:54 | NUR ---
SPOKE WITH DAUGHTER, ZOILA. STATES SHE AND PATIENT HAVE HAD MULTIPLE CONVERSATIONS REGARDING SNF PLACEMENT IF NEEDED AND THEY BOTH AGREE HE NEEDS TO GO TO SNF. DAUGHTER WILL CALL BACK WITH PREFERRED FACILITIES THIS AFTERNOON. PATIENT DOES LIVE ALONE AND REQUIRE A LOT OF FAMILY ASSISTANCE. HE HAS SOME MEDICAL EQUIPMENT AT HOME. HOME HEALTH WORKS WITH HIM WELL. WILL DC TO SNF WHEN MEDICALLY READY.
--- NOTE | 2025-07-20 13:00 | NUR ---
ADMINISTERED PRN PAIN MED AND SCHEDULED AB.PT ASKED WHEN NEXT NEB TREATMENT WAS, 1400. VISITOR IN ROOM.
--- NOTE | 2025-07-20 14:52 | NUR ---
PT IN BED VISITING WITH FAMILY. DENIES NEEDS ATT. HUNG NEW BAG OF IVF.
[2025-07-20] MEDS ORDERED: LIDOCAINE HCL 4% 1 EACH PATCH TD SCH (15:13)
[2025-07-20] MEDS ORDERED: MENTHOL/CETYLPYRD CL 1 LOZ LOZENGE MM PRN (15:30)
[2025-07-20] MEDS ORDERED: POTASSIUM CHLORIDE 10 MEQ TABCR PO ONE (15:30)
--- NOTE | 2025-07-20 16:03 | NUR ---
PAT[place] NEED [place] AT [place]. [facility] WILL SEND REFERRALS TO 2 FACILITIES DAUGHTER MENTIONED IN PREVIOUS CALL SHE HAS NOT YET RETURNED CALL. REFERRALS TO BE SENT TO [facility] AND [facility]. WILL SEND REFERRALS TO OTHER FACILITIES IF PATIENT AND DAUGHTER PREFER.
--- NOTE | 2025-07-20 16:22 | NUR ---
ASSESMENT COMPLETED. SCHEDULED MEDICATIONS ADMINISTERED. PATIENT ASSISTED TO COMMODE AND BACK TO BED. PATIENT DENIES FURTHER CONCERNS, FAMILY AT BEDSIDE
--- NOTE | 2025-07-20 18:13 | NUR ---
PATIENT IN BED, VISITING WITH FAMILY. PATIENT REPORTS 8/10 PAIN. PRN PAIN MEDICATION ADMINISTERED PER PATIENT REQUEST. PATIENT SUPPLIED WITH FOOD OF HIS LIKING, HE DID NOT EAT ANY OF HIS DINNER.
--- NOTE | 2025-07-20 19:03 | NUR ---
PATIENT WASN'T FEELING WELL TO TAKE A SHOWER. SO WE ARE PLANNING ON THE SHOWER TOMORROW.
--- NOTE | 2025-07-20 19:05 | NUR ---
REPORT RECIEVED FROM ABDIRAHMAN COLIN AND ABDIRAHMAN HARPER. PATIENT RESTING IN BED ON HIS BACK WITH HIS EYES CLOSED. EVEN AND UNLABORED RESPIRATIONS NOTED. CALL LIGHT AND PERSONAL BELONGINGS ARE WITHIN REACH.
--- NOTE | 2025-07-20 20:33 | NUR ---
PATIENT MEDICATED PER EMAR. PATIENT ASSESSMENT COMPLETED. PATIENT SITTING UP IN BED WATCHING TV. WARM BLANKETS PROVIDED. PATIENT WITHOUT FURTHER NEEDS AT THIS TIME. CALL LIGHT AND PERSONAL BELONGINGS ARE WITHIN REACH.
[2025-07-20] MEDS ORDERED: LIDOCAINE PATCH REMOVAL 1 EA TD SCH (21:00)
--- NOTE | 2025-07-20 21:55 | NUR ---
PATIENT MEDICATED PER EMAR
--- NOTE | 2025-07-20 22:09 | NUR ---
NEW BAG OF IV FLUIDS INFUSING PER ORDER. PATIENT UP TO BATHROOM VIA 1PERSON ASSIST. PATIENT TOLERATED WELL, BUT REPORTS INCREASE PAIN WITH AMBULATION. PATIENT IV FLUSHED WITH 10ML OF NS, DRESSING IS INTACT. PATIENT BACK TO BED. INTAKE AND OUTPUT DOCUMENTED. FRESH ICE WATER PROVIDED. PATIENT WITHOUT FURTHER NEEDS AT THIS TIME. CALL LIGHT AND PERSONAL BELONGINGS ARE WITHIN REACH.
[2025-07-21] VITALS (11 sets, daily range): BP systolic 101–123; BP diastolic 63–80
--- NOTE | 2025-07-21 00:20 | NUR ---
PATIENT RESTING IN BED WITH HIS EYES CLOSED. EVEN AND UNLABORED RESPIRATIONS NOTED. CALL LIGHT AND PERSONAL BELONGINGS ARE WITHIN REACH.
--- NOTE | 2025-07-21 01:15 | NUR ---
RECEIVED REPORT FROM ABDIRAHMAN DEUTSCH. PT RESTING WITH EYES CLOSED. IV FLUIDS INFUSING. RESP EVEN/UNLABORED. THIS RN ALLOWS PATIENT TO SLEEP AT THIS TIME. CALL LIGHT WITHIN REACH.
--- NOTE | 2025-07-21 02:23 | NUR ---
PT RESTING IN BED, IV PUMP CLEARED, SATS CURRENTLY 96% ON 3L PER NC, CPOX IN PLACE, WEANED O2 TO 2L PER NC WHILE RESTING THIS IS PATIENT BASELINE. DENIES ANY NEEDS PATIENT AWAKENS WHEN THIS RN WALKS INTO ROOM. BED ALARM PLACED ON PATIENT. CALL LIGHT WITHIN REACH.
--- NOTE | 2025-07-21 03:59 | NUR ---
THIS RN IN TO SEE PATIENT, EYES OPEN WHEN ENTERING. PT C/O 06/07 PAIN TO BACK/CHEST, PRN MEDS GIVEN - SEE MAR. LIDOCAINE PATCH REMOVED FROM (R) UPPER RIB AREA. PT STATES MAY NEED TO USE RESTROOM, PT ABLE TO GET TO EDGE OF BED WITH MINIMAL ASSIST, SAT ON EDGE OF BED FOR A MINUTE, DENIES DIZZINESS/LIGHTHEADED, UP TO BSC, CALL LIGHT WITHIN REACH, WANTED A FEW MINUTES OF PRIVACY. SCULPTURE INSTRUCTOR RETURNS TO ROOM TO ASSIST PATIENT BACK - PT WAS ABLE TO UTILIZE CALL LIGHT APPROPRIATELY AND WAIT FOR ASSISTANCE.
[2025-07-21 05:33] LABS: BASOPHILS 0.5 % (0.2-1.2); EOSINOPHILS 3.1 % (0.8-7.0); LYMPHOCYTES 17.7 % (21.8-53.1); MCH 28.2 PG (25.7-32.2); MCHC 31.7 g/dL (32.3-36.5); MCV 89.1 fL (79.0-92.2); MONOCYTES 10.5 % (5.3-12.2); NEUTROPHILS 68.0 % (34.0-67.9); RBC 3.58 M/uL (4.63-6.08)
[2025-07-21 05:52] LABS: ALT (SGPT) 54.0 U/L (14-59); AST (SGOT) 29.0 U/L (15-37); GLOMERULAR FILTRATION RATE,EST 95.0 mL/min (>60); PROTEIN, TOTAL 4.8 g/dL (6.4-8.2); UREA NITROGEN 8.0 mg/dL (7-18)
--- NOTE | 2025-07-21 06:12 | NUR ---
PT WORKING WITH FITTER UP, BACK TO BED. VS TAKEN AND STABLE. NEW BAG OF IV FLUIDS HUNG. PT STATES HIS PAIN IS BETTER, STATES THE BACK PAIN IS 7.5/10 AND THE PAIN IN THE LEFT LOWER CHEST IS IMPROVED, BUT RATES IT ABOUT 5/10. PT UNDERSTAND WILL GET ANOTHER LIDOCAINE PATCH. REQUESTING COUGH DROP THIS MORNING WHICH WAS PROVIDED TO PATIENT. DENIES ANY OTHER CONCERNS AT THIS TIME, CALL LIGHT WTIHIN REACH.
--- NOTE | 2025-07-21 07:07 | NUR ---
DAUGHTER LEFT VOICEMAIL STATING HER PREFERRED FACILITY FOR PATIENT IS NOW [facility]. REFERRAL FAXED TO [facility] AT THIS TIME.
--- NOTE | 2025-07-21 07:23 | NUR ---
VERBAL REPORT RECEIVED FROM ABDIRAHMAN PERKINS. PT RESTS IN BED AWAKE, NO REQUESTS AT THIS TIME.
--- NOTE | 2025-07-21 07:39 | NUR ---
REPORT RECEIVED FROM GREGORIO GARY. PATIENT IN BED, EYES OPEN, CHEST RISE EVEN AND UNLABORED. PATIENT DENIES CONCERNS. CALL LIGHT AND PERSONAL BELONGINGS IN REACH OF PATIENT.
--- NOTE | 2025-07-21 09:13 | NUR ---
PATIENT HAS BEEN ACCEPTED TO [facility] FOR SUNDAY FOR SNF PLACEMENT
--- NOTE | 2025-07-21 09:13 | NUR ---
PATIENT IN BED, VISITING WITH FAMILY. ASSESMENT COMPLETED. SCHEDULED MEDICATIONS ADMINISTERED. PATIENT DENIES CONCERNS AT THIS TIME.
--- NOTE | 2025-07-21 09:28 | NUR ---
UPDATED DAUGHTER ABOUT PATIENT ACCEPTANCE TO [facility]. STATES SHE WILL TRANSPORT HIM AND PICK HIM UP AT 1000 ON SUNDAY.
--- NOTE | 2025-07-21 09:54 | NUR ---
SPOKE WITH PATIENT AND UPDATED ON ACCEPTANCE TO [facility] FOR SUNDAY AND HIS DAUGHTER WILL DRIVE HIM. NO FURTHER CM NEEDS AT THIS TIME.
--- NOTE | 2025-07-21 11:32 | NUR ---
VISITED DURING SPIRITUAL CARE ROUNDS. PT SUPPORTED BY FAMILY IN ROOM, NO IMMEDIATE NEEDS. SPRAGGER PROVIDED SUPPORTIVE PRESENCE, HOSPITALITY, PRAYER. PT EXPRESSED GRATITUDE, HUMOR, ARNAUD SOURCE OF STRENGTH.
--- NOTE | 2025-07-21 11:44 | NUR ---
PATIENT IN CHAIR WITH FAMILY AT BEDSIDE. i ASSISTED PATEINT WITH HIS LUNCH TRAY SET UP. PATIENT DENIES CONCERNS. CALL LIHT AND PERSONAL BELONGIGNS IN REACH OF PATIENT.
--- NOTE | 2025-07-21 12:58 | NUR ---
PATIENT IN BED, FAMILY AT BEDSIDE. SCHEDULED MEDICATION ADMINISTERED. PATIENT REPORTS 7/10 PAIN MEDICATION. PRN PAIN MEDICATION ADMINISTERED AT PATIENT'S REQUEST. ASSESMENT COMPLETED. PATIENT CRISTAL FURTHER CONCERNS AT THIS TIME, PT AT BEDSIDE.
--- NOTE | 2025-07-21 14:50 | NUR ---
PATIENT IN BED, EYES OPEN, CHEST RISE EVEN AND UNLABORED. CALL LIGHT AND PERSONAL BELOGNIGNS IN REACH OF PATIENT.
--- NOTE | 2025-07-21 15:15 | NUR ---
MANAGER SERVICING IN ROOM WITH PATIENT, PATIENT IN SHOWER. NO FURTHER NEEDS NOTED AT THIS TIME.
--- NOTE | 2025-07-21 16:20 | NUR ---
PATIENT SITTING AT SIDE OF BED. SCHEDULED MEDICATION ADMINISTERED. CALL LIGHT AND PERSONAL BELONGIGNS IN REACH OF PATIENT.
--- NOTE | 2025-07-21 16:28 | NUR ---
CONNIE MOYA AND CONNIE PRAJAPATI HELPED TRANSFER PATIENT FROM BED ONTO TOILET SEAT. PATIENT ASKED FOR A BREATHING TREATMENT AFTER COMING BACK FROM THE RESTROOM. CONNIE MOYA NOTIFIED RT AND RT BEGAN TREATMENT FOR THE PATIENT. AFTER TREATMENT CONNIE MOYA AND CONNIE PRAJAPATI HELPED TRANSFER PATIENT FROM BED INTO THE SHOWER WHERE CONNIE MOYA AND CONNIE PRAJAPATI ASSISTED THROUGHOUT HIS SHOWER. AFTER THE SHOWER WE DRESSED THE PATIENT, PATIENT STATED NO FURTHER NEEDS AND WAS LEFT WITH CALL LIGHT WITHIN REACH.
--- NOTE | 2025-07-21 17:48 | NUR ---
PATIENT IN BED, FAMILY AT BEDSIDE. PATIENT DECIDING WHAT HE WOULD LIKE TO EAT TOMORROW. PATIENT DENIES CONCERNS AT THIS TIME. CALL LIGHT AND PERSONAL BELONGIGNS IN REACH OF PATIENT.
--- NOTE | 2025-07-21 18:22 | NUR ---
PATIENT ASSISTED TO BEDSIDE COMMODE. PATIENT DENEIS FURTHER CONCERNS. CALL LIGHT IN REACH OF PATIENT. ADVISED PATIENT TO PUSH CALL LIGHT WHEN HE IS FINISHED. PATIENT VERBALIZED UNDERSTANDING.
--- NOTE | 2025-07-21 19:36 | NUR ---
REPORT RECEIVED FROM DAY SHIFT RN. PT LYING IN BED ALERT AND ORIENTED. THROAT LOZENGE PROVIDED PER REQUEST. NO FURTHER NEEDS. WHITE BOARD UPDATED. CALL LIGHT IN REACH. BED ALARM FOR SAFETY.
--- NOTE | 2025-07-21 21:24 | NUR ---
EVENING ASSESSMENT COMPLETE. SCHEDULED MEDS ADMIN PER EMAR. PT REPORTS BACK PAIN 08/07. PRN FOR PAIN ADMIN PER EMAR. PT DENIES SOB. 3L/NC IN PLACE. SpO2 96%. LUNGS CLEAR/DIM. TELE #[address] HR 80'S. BUE AND BLE EDENA NOTED. PT OFF THE FLOOR WITH AREA SALES MANAGER FOR CT.
--- NOTE | 2025-07-21 21:46 | NUR ---
PT BACK FROM CT. WARM BLANKETS PROVIDED. RLE ELEVATED ON PILLOW. 3L/NC AND CPOX IN PLACE. IVF INFUSING PER ORDER. NO FURTHER NEEDS. CALL LIGHT IN REACH.
--- NOTE | 2025-07-21 23:45 | NUR ---
PATIENT CALLED TO USE THE BATHROOM. BEDSIDE COMMODE OFFERED DUE TO SHORTNESS OF BREATH. PATIENT VOIDED 550ML CLEAR STEPHEN URINE. PATIENT IS BACK IN BED. ALARM ACTIVATED FOR PATIENT'S SAFETY. NO FURTHER NEEDS AT THIS TIME. CALL LIGHT WITHIN PATIENT'S REACH.
[2025-07-22] VITALS (11 sets, daily range): BP systolic 107–125; BP diastolic 54–72
--- NOTE | 2025-07-22 00:20 | NUR ---
PT RESTING IN BED WITH EYES CLOSED. RESPIRATIONS EVEN. CALL LIGHT IN REACH.
--- NOTE | 2025-07-22 03:09 | NUR ---
CALL LIGHT ANSWERED. PT UP TO BSC WITH SBA TO VOID. BACK TO BED, ANGELIQUE WELL. REPORTS BACK PAIN 06/07. PRN FOR PAIN ADMIN PER EMAR. NO FURTHER NEEDS. CALL LIGHT IN REACH.
--- NOTE | 2025-07-22 04:12 | NUR ---
PT RESTING IN BED WITH EYES CLOSED. SpO2 95% ON 2L/NC. HR 70'S. BED ALARM IN PLACE. CALL LIGHT IN REACH.
[2025-07-22 05:15] LABS: BASOPHILS 0.8 % (0.2-1.2); EOSINOPHILS 2.3 % (0.8-7.0); LYMPHOCYTES 17.1 % (21.8-53.1); MCH 28.2 PG (25.7-32.2); MCHC 32.1 g/dL (32.3-36.5); MCV 87.8 fL (79.0-92.2); MONOCYTES 9.1 % (5.3-12.2); NEUTROPHILS 70.3 % (34.0-67.9); RBC 3.44 M/uL (4.63-6.08)
--- NOTE | 2025-07-22 05:22 | NUR ---
LAB IN FOR MORNING DRAW. VS AND I&O OBTAINED. PT DENIES NEEDS. CALL LIGHT IN REACH.
[2025-07-22 05:25] LABS: GLOMERULAR FILTRATION RATE,EST 100.0 mL/min (>60); UREA NITROGEN 8.0 mg/dL (7-18)
--- NOTE | 2025-07-22 07:32 | NUR ---
REPORT RECEIVED FROM ABDIRAHMAN GONSALVES. PATIENT IN BED SPEAKING ON HIS CELL PHONE. CALL LIGHT AND PERSONAL BELONGINGS IN REACH OF PATIENT. NO APPARENT NEEDS NOTED AT THIS TIME.
--- NOTE | 2025-07-22 08:16 | NUR ---
UPDATED CLINCALS FAXED TO [facility]
--- NOTE | 2025-07-22 09:00 | NUR ---
PATIENT SITTING UP IN CHAIR. SCHEDULED MEDICAITONS ADMINISTERED. PRN PAIN MEDICATIONS ADMINISTERED PER PATIENT REQUEST. PATIENT DENIES CONCERNS AT THIS TIME. ASSESMENT COMPLETED. CALL LIGHT AND PERSONAL BELONGINGS IN REACH OF PATIENT.
--- NOTE | 2025-07-22 09:38 | NUR ---
PT NOT AVAILABLE FOR VISIT. PROVIDED PRAYER.
--- NOTE | 2025-07-22 09:50 | NUR ---
PATIENT SITTING IN CHAIR, SPEAKING ON CELL PHONE. NO APPARENT NEEDS NOTED AT THIS TIME. CALL LIGHT AND PERSONAL BELONGINGS IN REACH OF PATIENT.
--- NOTE | 2025-07-22 10:51 | NUR ---
PATIENT IN BED. PATIENT REPORTS 6/10 PAIN. PRN PAIN MEDICATION ADMINISTERED PER PATIENT REQUEST. PATIENT DENIES FURTHER CONCERNS AT THIS TIME.
--- NOTE | 2025-07-22 10:59 | NUR ---
SPOKE WITH PHYSICIAN AT [facility] WHO STATES DAUGHTER IS WANTING PATIENT TO GO TO THE [facility] AT [place]. STATES [facility] IS IN CHARGE OF ADMISSIONS PHONE # IS [phone] AND FAX IS [phone]. CALLED AND LEFT MESSAGE FOR [facility]. FAXED RECORDS.
--- NOTE | 2025-07-22 11:07 | NUR ---
SPOKE WITH GENEVA AT [facility] [place] IN [place]. THEY HAVE NOT RECEIVED REFERRAL. WILL NOTIFY THIS NURSE IF SHE DOES NOT RECEIVE IT. STATES THEY DO HAVE A BED OPEN AND COULD ACCEPT PATIENT TOMORROW IF THEY DO ACCEPT. THEY WOULD LIKE TO REVIEW HIS CHART FIRST.
--- NOTE | 2025-07-22 11:12 | NUR ---
PATYIENT WAS IN BED CONNIE PRAJAPATI TOOK HIS VITALS. PATIENT DID NOT WANT TO RECEIVE AM CARE OR ASSISTANCE WITH BRUSHING HIS TEETH. ROOM WAS CLEANED AND STOCKED AND PATIENT WAS LEFT WITH THE CALL LIGHT WITHIN REACH.
--- NOTE | 2025-07-22 12:46 | NUR ---
ASSISTED PATIENT TO BATHROOM AND BACK TO BED. SCHEDULED MEDICATIONS ADMINISTERED. PERSONAL BELONGINGS AND CALL LIGHT IN REACH OF PATIENT.
--- NOTE | 2025-07-22 14:01 | NUR ---
PATIENT SITTING AT SIDE OF BED. PHYSICAL THERAPY IN ROOM WORKING WITH PATIENT.
--- NOTE | 2025-07-22 14:23 | NUR ---
PATIENT WAS IN BED CONNIE PRAJAPATI BEGAN TO TAKE HIS VITAL SIGNS. CONNIE PRAJAPATI CHARTED HIS TOTAL INTAKE AND PERCENTAGE OF LUNCH ATE. PATIENT LEFT WITH CALL LIGHT IN REACH, NO FURTHER NEEDS. PATIENT STATED TO CONNIE PRAJAPATI THAT HE FELT A NEW RASH OR BRUISE FORMING ON HIS STOMACH, CONNIE PRAJAPATI LET HIS NURSE KNOW. NO FURTHER NEEDS AT THIS TIME, CALL LIGHT LEFT WITHIN REACH.
--- NOTE | 2025-07-22 14:28 | NUR ---
PATIENT IN CHAIR. PATIENT REPORTS 8/10 PAIN. PRN PAIN MEDICATION ADMINISTERED PER PATIENT REQUEST. ASSESMENT COMPLETED. PATIENT DENIES FURTHER CONCERNS.
--- NOTE | 2025-07-22 14:42 | NUR ---
SPOKE WITH GENEVA AT [facility], THEY WILL NOT HAVE ACCEPTANCE UNTIL 0800 TOMORROW MORNING. SPOKE WITH BETTY AT [facility]. STATES THEY WILL HOLD HIS BED WITH TENTATIVE ADMIT TIME [id number] TOMORROW IF [facility].
--- NOTE | 2025-07-22 15:38 | EKG ---
[facility] [address] [facility] [place] [address] Signed Normal sinus rhythm Left axis deviation Low voltage QRS Nonspecific ST and T wave abnormality Abnormal ECG When compared with ECG of 17-JUL-2025 21:22, QRS duration has decreased Confirmed by Светлана Mcmahon MD () on 07/22/2025 3:37:49 PM Electronically Signed By: СВЕТЛАНА MCMAHON MD 07/22/25 1538 PATIENT NAME: ZAYRA MUÑOZ SIDNEY Electrocardiogram DATE OF : 45 PHYSICIAN: СВЕТЛАНА MCMAHON MD REPORT #: [id number] REPORT IS CONFIDENTIAL AND NOT TO BE RELEASED WITHOUT AUTHORIZATION
--- NOTE | 2025-07-22 15:44 | NUR ---
PATIENT IN CHAIR. PATIENT DENIES CONCERNS AT THIS TIME.
--- NOTE | 2025-07-22 16:14 | NUR ---
PATIENT AMBULATING THE ENRIQUEZ WITH ABDIRAHMAN CUMMINGS.
--- NOTE | 2025-07-22 16:21 | NUR ---
PT AMBULATES IN HALLWAY WITH FWW AND SBA ON 3 LPM O2 VIA NC, TOLERATES THIS FAIR. PT BACK TO BED. CALL LIGHT IN REACH.
--- NOTE | 2025-07-22 16:42 | NUR ---
ASSISTED PATIENT FROM BATHROOM BACK TO BED. SCHEDULED MEDICATIONS ADMINISTERED. PRN COUGH MEDICATION ADMINISTERED AT PATIENT'S REQUEST. PATIENT DENIES FURTHER CONCERNS AT THIS TIME.
--- NOTE | 2025-07-22 17:39 | NUR ---
PATIENT SITTING AT SIDE OF BED. OT AND FAMILY AT BEDSIDE.
--- NOTE | 2025-07-22 19:28 | NUR ---
REPORT RECEIVED FROM DAY SHIFT RN. PT LYING IN BED ALERT AND ORIENTED. SBA TO BR WITH FWW. GAIT STEADY. PT BACK TO BED. NO FURTHER NEEDS. WHITE BOARD UPDATED. CALL LIGHT IN REACH.
--- NOTE | 2025-07-22 19:31 | NUR ---
vOIDED BRIGHT YELLOW URINE, QS, BACK TO BED, O2 3LNC, CPOX ON AT BEDSIDE, 93% SATS ON RETURN, RESP 24, AUDITORY WHEEZING PRESENT WITH EXERTION, HELPED TO BED, HOB ELEVATED. COOPERATIVE. NO C/O PAIN
[2025-07-22] MEDS ORDERED: MAGNESIUM HYDROXIDE/AL HYDROX 30 ML CUP PO PRN (19:45)
--- NOTE | 2025-07-22 20:00 | NUR ---
in te see pt for vs, tucked into bed, water refreshed and warm blanket provided, bs table organized for pt, no further needs at this time
--- NOTE | 2025-07-22 20:23 | NUR ---
EVENING ASSESSMENT COMPLETE. SCHEDULED MEDS ADMIN PER EMAR. PT REPORTS BACK PAIN 06/07. PRN FOR PAIN ADMIN PER EMAR. PT DENIES SOB. 3L/NC IN PLACE. SpO2 97%. OXYGEN TITRATED TO 2L/NC. TELE #[address] SR. HR 70'S. RLE EDEMA/REDNESS NOTED. ELEVATED ON PILLOW. ASSISTED TO REPOSITION TO RIGHT SIDE FOR COMFORT. PT DENIES FURTHER NEEDS. CALL LIGHT IN REACH. BED ALARM FOR SAFETY.
--- NOTE | 2025-07-22 22:15 | NUR ---
in to assist pt to the toilet, sba fww, voided, back to bed, bed alarm resumed
--- NOTE | 2025-07-23 00:33 | NUR ---
PT RESTING IN BED WITH EYES CLOSED. RESPIRATIONS EVEN. CALL LIGHT IN REACH.
[2025-07-23 01:04] VITALS: BP 130/69
--- NOTE | 2025-07-23 01:35 | NUR ---
PATIENT REPORTS 8/10 BACK PAIN. PRN PAIN MEDICATION ADMINISTERED PER PATIENT REQUEST. NO FURTHER NEEDS. CALL LIGHT IN REACH.
--- NOTE | 2025-07-23 03:17 | NUR ---
PT RESTING IN BED WITH EYES CLOSED. RESPIRATIONS EVEN. CALL LIGHT IN REACH.
[2025-07-23 05:35] VITALS: BP 102/67
--- NOTE | 2025-07-23 05:52 | NUR ---
PT RESTING WITH EYES CLOSED. AWAKENS EASILY. VS AND I&O OBTAINED. PT REPORTS BACK PAIN 06/07. PRN FOR PAIN ADMIN PER EMAR. NO FURTHER NEEDS.
--- NOTE | 2025-07-23 07:07 | NUR ---
VERBAL REPORT RECIEVED BY ABDIRAHMAN GONSALVES. PATIENT UP IN CHAIR WATCHING TV. PATIENT ON 2 L NC, BREATHING EVEN AND UNLABORED, WITH CPOX AT BEDSIDE. SPO2 97%. MILK GIVEN PER PATIENT REQUEST. CALL LIGHT IN REACH. NO FURTHER NEEDS AT THIS TIME.
--- NOTE | 2025-07-23 09:20 | NUR ---
THIS RN IN TO HELP PATIENT BACK TO BED FROM CHAIR. SBA WITH FWW, PT WAS ABLE OT GET FEET UP IN BED INDEPENDENTLY. CPOX REMAINS IN PLACE. MD ARRIVES FOR ROUNDING, BED ALARM IN PLACE. ALL PT CARE NEEDS MET, CALL LIGHT WITHIN REACH.
[2025-07-23 09:33] VITALS: BP 107/73
[2025-07-23] MEDS ORDERED: MAXI-TUSS AC L473 ML PO (09:36)
[2025-07-23] MEDS ORDERED: DILAUDID2 MG PO (09:37)
--- NOTE | 2025-07-23 09:38 | NUR ---
PATIENT GOING TO [facility] TODAY BY POV WITH DAUGHTER. IMM LETTER COMPLETED.
--- NOTE | 2025-07-23 10:00 | NUR ---
FAXED ORDERS TO [facility] AND DAUGHTER IS ON HER WAY
--- NOTE | 2025-07-23 10:29 | NUR ---
MORNING ASSESSMENT COMPLETED. EDEMA PRESENT IN RLE, OUTLINED, NOT EXECEDING PAST LINE. ENCOURAGED TO ELEVATE LEGS. BACK BRACE ON PRIOR TO TRANSFER TO WHEELCHAIR. PATIENT ON 2L NC UPON DISCHARGE. PATIENT DISCHARGE PACKET SENT WITH GRANDDAUGHTER. PATIENT LEFT VIA WHEELCHAIR BY CONNIE DENNEY.
--- NOTE | 2025-07-23 11:04 | NUR ---
CALLED [facility] AND SPOKE TO ARMANDO AND GAVE REPORT. ALL QUESTIONS ANSWERED.
== END 2025-07-23 10:27 | DRG 551 ==
LOC: ED 21:13 → MS 07-18 12:01
PROVIDERS: Family Medicine; ADMIT Family Medicine; ATTEND Family Medicine
DX: S22.009A Unspecified fracture of unspecified thoracic vertebra, initial encounter for closed fracture (principal); I26.99 Other pulmonary embolism without acute cor pulmonale; I82.401 Acute embolism and thrombosis of unspecified deep veins of right lower extremity; I47.29 Other ventricular tachycardia; L03.115 Cellulitis of right lower limb; S32.009A Unspecified fracture of unspecified lumbar vertebra, initial encounter for closed fracture; J44.9 Chronic obstructive pulmonary disease, unspecified; Z99.81 Dependence on supplemental oxygen; E04.1 Nontoxic single thyroid nodule; R91.1 Solitary pulmonary nodule; T50.915A Adverse effect of multiple unspecified drugs, medicaments and biological substances, initial encounter; Z85.3 Personal history of malignant neoplasm of breast; I25.2 Old myocardial infarction; Z86.73 Personal history of transient ischemic attack (TIA), and cerebral infarction without residual deficits; Z90.49 Acquired absence of other specified parts of digestive tract; Z98.52 Vasectomy status; Z98.890 Other specified postprocedural states; Z91.040 Latex allergy status; Z91.018 Allergy to other foods; Z88.8 Allergy status to other drugs, medicaments and biological substances; W18.30XA Fall on same level, unspecified, initial encounter
CPT/HCPCS: 36415; 70450; 71045; 72128; 72131; 80048; 80053; 83690; 83735; 84100; 84484; 85025; 85379; 93005; 93010; 94640; 94667; 94668; 94762; 94799; 96361; 96374; 96375; 96376; 97110; 97162; 97166; 97530; 97535; 99284-25; A9270; G0378; J2270; J7030; J7512; J7605